=== PATIENT | male | born 1945 | race Caucasian/White ===

== ENCOUNTER 2017-12-11 15:49 | Emergency (ER) | payer OTHER, SELFPAY ==
[2017-12-11 15:50] VITALS: BP 154/92; PULSE 88; RESP 17; TEMP 36.6; O2SAT 96; BMI 33.6
--- NOTE | 2017-12-11 16:32 | RAD_ITS ---
STUDY: X-RAY - ACUTE ABDOMINAL SERIES REASON FOR EXAM: Male, 72 years old. Pain across lower abdomen with distention. Nausea, vomiting and constipation. No BM since past Tuesday. TECHNIQUE: Single view of the chest. Supine, and erect view(s) of the abdomen were obtained. COMPARISON: None. FINDINGS: Multiple median sternotomy wires are noted consistent for cardiac surgery. The lungs are clear and expanded. Normal size heart. Normal mediastinum and parminder. Normal visualized pulmonary arteries. There is atherosclerotic tortuosity of the aortic arch and descending thoracic aorta. There is a paralytic ileus of the small intestine with mild gaseous distention. The soft tissue structures of the abdomen and pelvis are unremarkable. There are diffuse degenerative changes of the visualized lumbar spine. Degenerative findings of the hips. RAD/Acute Abdomen Inc Chest IMPRESSION: Question mild small bowel ileus. CT can further evaluate Electronically Signed: Chris Verduzco MD at 17:02 EDT , Service support ,
[2017-12-11 16:33] LABS: Absolute Lymphocyte Count 2.27 X10^3/ul (0.83-4.51); Absolute Neutrophil Count 5.9 X10^3/uL (2.0-7.7); Basophil# 0.02 X10^3/uL; Basophil% 0.2 % (0-1); Eosinophil# 0.11 X10^3/uL; Eosinophils% 1.2 % (0-5); Hematocrit 49.2 % (40-54); Hemoglobin 16.8 g/dl (13.0-16.5); Lymphocyte # 2.27 X10^3/ul (4.0); Lymphocyte % 24.1 % (19-41); Mean Corp Hgb Conc 34.1 g/gl (32-36); Mean Corpuscular Hgb 30.1 pg (27.0-32.0); Mean Platelet Vol. 10.2 fl (6.2-12.0); Monocyte# 1.14 X10^3/uL; Monocyte% 12.1 % (0-10); Neutrophil # 5.87 X10^3/uL (2.7-7.7); Neutrophil % 62.2 % (47-70); Platelet Count 212 K/mm3 (150-450); RBC Distribution Width CV 12.7 % (11.6-14.6); RBC Distribution Width SD 40.5 fl (35.1-43.9); Red Blood Count 5.59 M/mm3 (4.6-6.2); White Blood Count 9.4 K/mm3 (4.4-11.0)
[2017-12-11 16:36] LABS: POSITIVE COUNT NO; POSITIVE DIFFERENTIAL NO; POSITIVE MORPHOLOGY NO
[2017-12-11 16:47] LABS: Anion Gap 10 (5-15); BUN 20 mg/dL (7-18); BUN/Creat Ratio 21.3 RATIO (10-20); Calcium,Total 8.3 mg/dL (8.5-10.1); Chloride 103 mmol/L (98-107); Creatinine, Serum 0.94 mg/dL (0.70-1.30); EST Glomerular Filtration Rate 84 mL/min (>60); Est Glom Filt Rate - Afr Amer 102 mL/min (>60); Estimated Creatinine Clearance 76.77 ml/min; Glucose 241 mg/dL (74-106); Sodium Level 138 mmol/L (136-145)
--- NOTE | 2017-12-11 17:13 | CT_ITS ---
STUDY: CT ABDOMEN AND PELVIS WITHOUT CONTRAST REASON FOR EXAM: Male, 72 years old. Distention constipation RADIATION DOSAGE (If Supplied By Facility): CTDIvol = ( 21.27 ) mGy, DLP = ( 1137.14 ) mGycm TECHNIQUE: Transaxial images were obtained from the dome of the diaphragm to the symphysis pubis with oral contrast, and without intravenous contrast. Sagittal and coronal images were reconstructed. COMPARISON: None. FINDINGS: The visualized lung bases are unremarkable. The visualized portions of the heart are within normal limits. Multiple median sternotomy wires are noted consistent for cardiac surgery. There is decreased attenuation of the liver consistent with steatosis. There are surgical clips in the gallbladder fossa consistent with a prior cholecystectomy. There are multiple benign calcified granulomata of the spleen. There is diffuse atrophy of the pancreas. There is an indeterminate left adrenal mass measuring 29 x 19 mm Normal right kidney. Normal left kidney. There is a calcified 9.1 mm right renal artery aneurysm. Normal visualized stomach. Wall thickening and inflammation of the ileum. Suggest an ileitis. There are air-fluid levels in the small bowel representing possible ileus. Normal colon. There is non-visualization of the appendix. There are calcifications of the abdominal aorta and vascular structures. This is consistent for atherosclerotic disease. There is no abdominal aortic aneurysm. Normal inferior vena cava. Subcentimeter mesenteric lymph nodes. Normal urinary bladder. There are prostatic calcifications. Large amount of stool in the rectal vault can suggest constipation. Normal abdominal wall. There are degenerative changes of the osseous structures. Loss of intervertebral disc height at L5-S1. Vacuum disc phenomenon at L5-S1. Severe bilateral neuroforaminal stenosis at L4-5 and L5-S1. This is causing compression of the exiting L4 and L5 nerve roots respectively. CT/Abdomen/Pel W ORAL Cont Only IMPRESSION: There is mild ileitis. This is causing an ileus. Fatty liver. There is an indeterminate left adrenal mass measuring 29 x 19 mm. MRI could further evaluate. Cholecystectomy. Calcified right renal artery aneurysm. Severe bilateral neuroforaminal stenosis at L4-5 and L5-S1. This is causing compression of the exiting L4 and L5 nerve roots respectively. Other findings as above. Electronically Signed: Chris Verduzco MD at 19:46 EDT , Service support ,
[2017-12-11 18:11] VITALS: BP 170/87; PULSE 87; RESP 17; O2SAT 98
--- NOTE | 2017-12-11 20:03 | ED.VISSUMM ---
- ER Visit Summary Date of Service: 12/11/17 Chief Complaint: Abdominal pain since Tuesday and nausea and vomiting since Tuesday History of Present Illness: The patient is a 72 M who presents with abdominal pain since Tuesday and the sense of fullness with decreased appetite and no bowel movement. He also complains of nausea and vomiting times once a day since Tuesday. and patient states he has had no solid intake minimal oral intake. He denies fever, chills night sweats. Denies any ocular, visual auditory symptoms. He denies any cardiac respiratory symptoms. He denies any urologic symptoms. He denies myalgias arthralgias back pain. He denies headache, weakness, paresthesia, anesthesia motor weakness. He denies polyuria, polydipsia polyphagia. He denies any bleeding problems. Past medical history of type 2 diabetes and hypertension. He is status post single-vessel bypass surgery, circumflex Physical Examination: Pleasant elderly male with elevated blood pressure 154/92. He is afebrile. HEENT is remarkable tacky mucosa otherwise negative. Heart is regular without murmur, gallop or rub. S1 and S2 are normal. Lungs are clear to auscultation with good movement of air bilaterally. Abdomen is slightly distended tympanitic with decreased bowel sounds. The remainder of his abdominal exam is unremarkable. Rectal exam is unremarkable with normal size prostate. There is no stool vault. Neuro exam is nonfocal. There is no dermatologic lesions noted. Test Results: Three-view x-ray of the abdomen reveals multiple air-fluid levels however there is no distention or edema to the small bowel wall. This may represent ileus or early small bowel obstruction. White count is normal. Likely panels marked for glucose of 241 and a BUN of 20. CT of the abdomen with p.o. contrast was obtained because of concern for partial small bowel obstruction. The CT interpreted by radiologist reveals ileitis with inflammation of the ileum and evidence of an ileus. There is no evidence of obstruction. There is also a right renal artery aneurysm 9 mm and degenerative disc disease with nerve root compression. Emergency Department Course and Treatment: To evaluate patient abdominal pain x-rays were obtained as well as blood work. Because the abdominal x-ray is not normal but not diagnostic and concern for partial small bowel obstruction CT of the abdomen and pelvis with p.o. contrast was ordered. Treatment Plan: Since patient has evidence of ileitis he was asked regarding family history of inflammatory bowel disorder. He states there is no history. He received a dose of ciprofloxacin metronidazole and department. He has no history of alcohol use. He also received Bentyl. He will be discharged with prescription for ciprofloxacin, metronidazole, Bentyl and [place]. Since pharmacies are closed since it is the holiday he received a home pack of Bentyl and [place]. Disposition: Discharged to home with outpatient follow-up with Dr. Joshua Alonzo Impression: 1. Abdominal pain with nausea vomiting secondary to ileitis 2. Ileus secondary #1 3. Incidental right renal artery aneurysm 4. Hyperglycemia and type II diabetic This note was generated with Ziptration software. It may contain incorrect words, spelling, and punctuation that were not noted in review of the chart prior to signing ED Disposition - Plan for ED Patient: Disposition: Home or Assisted Living Chief Complaint: Abd Pain Instructions: Ileus Prescriptions: Dicyclomine HCl [Bentyl] 20 mg PO ACHS #10 cap Ciprofloxacin [Cipro] 500 mg PO BID #14 tab Metronidazole 500 mg PO TID #30 tab Referrals: Dmitry Haas MD [Primary Care Provider] - Joshua Alonzo MD [STAFF PHYSICIAN] - 1-2 Weeks Additional Instructions: Return if the pain is severe, unable to drink or eat because of vomiting or temperature greater than 100. Take medication as prescribed until gone. Pain medicine may cause worsening constipation recommend Metamucil 2-3 times a day for the next 3-4 days.
[2017-12-11] MEDS: Ciprofloxacin 500 MG Tablet PO (20:09)
[2017-12-11] MEDS: Dicyclomine 10 MG Capsule 20 MG PO (20:09)
--- NOTE | 2017-12-11 20:12 | ED.DCSUM_ITS ---
- ER Visit Summary Date of Service: 12/11/17 Chief Complaint: Abdominal pain since Tuesday and nausea and vomiting since Tuesday History of Present Illness: The patient is a 72 M who presents with abdominal pain since Tuesday and the sense of fullness with decreased appetite and no bowel movement. He also complains of nausea and vomiting times once a day since Tuesday. and patient states he has had no solid intake minimal oral intake. He denies fever, chills night sweats. Denies any ocular, visual auditory symptoms. He denies any cardiac respiratory symptoms. He denies any urologic symptoms. He denies myalgias arthralgias back pain. He denies headache, weakness, paresthesia, anesthesia motor weakness. He denies polyuria , polydipsia polyphagia. He denies any bleeding problems. Past medical history of type 2 diabetes and hypertension. He is status post single-vessel bypass surgery, circumflex Physical Examination: Pleasant elderly male with elevated blood pressure 154/ 92. He is afebrile. HEENT is remarkable tacky mucosa otherwise negative. Heart is regular without murmur, gallop or rub. S1 and S2 are normal. Lungs are clear to auscultation with good movement of air bilaterally. Abdomen is slightly distended tympanitic with decreased bowel sounds. The remainder of his abdominal exam is unremarkable. Rectal exam is unremarkable with normal size prostate. There is no stool vault. Neuro exam is nonfocal. There is no dermatologic lesions noted. Test Results: Three-view x-ray of the abdomen reveals multiple air-fluid levels however there is no distention or edema to the small bowel wall. This may represent ileus or early small bowel obstruction. White count is normal. Likely panels marked for glucose of 241 and a BUN of 20. CT of the abdomen with p.o. contrast was obtained because of concern for partial small bowel obstruction. The CT interpreted by radiologist reveals ileitis with inflammation of the ileum and evidence of an ileus. There is no evidence of obstruction. There is also a right renal artery aneurysm 9 mm and degenerative disc disease with nerve root compression. Emergency Department Course and Treatment: To evaluate patient abdominal pain x- rays were obtained as well as blood work. Because the abdominal x-ray is not normal but not diagnostic and concern for partial small bowel obstruction CT of the abdomen and pelvis with p.o. contrast was ordered. Treatment Plan: Since patient has evidence of ileitis he was asked regarding family history of inflammatory bowel disorder. He states there is no history. He received a dose of ciprofloxacin metronidazole and department. He has no history of alcohol use. He also received Bentyl. He will be discharged with prescription for ciprofloxacin, metronidazole, Bentyl and [place]. Since pharmacies are closed since it is the holiday he received a home pack of Bentyl and [place]. Disposition: Discharged to home with outpatient follow-up with Dr. Joshua Alonzo Impression: 1. Abdominal pain with nausea vomiting secondary to ileitis 2. Ileus secondary #1 3. Incidental right renal artery aneurysm 4. Hyperglycemia and type II diabetic This note was generated with LoveItation software. It may contain incorrect words, spelling, and punctuation that were not noted in review of the chart prior to signing ED Disposition - Plan for ED Patient: Disposition: Home or Assisted Living Chief Complaint: Abd Pain Instructions: Ileus Prescriptions: Dicyclomine HCl [Bentyl] 20 mg PO ACHS #10 cap Ciprofloxacin [Cipro] 500 mg PO BID #14 tab Metronidazole 500 mg PO TID #30 tab Referrals: Dmitry Haas MD [Primary Care Provider] - Joshua Alonzo MD [STAFF PHYSICIAN] - 1-2 Weeks Additional Instructions: Return if the pain is severe, unable to drink or eat because of vomiting or temperature greater than 100. Take medication as prescribed until gone. Pain medicine may cause worsening constipation recommend Metamucil 2-3 times a day for the next 3-4 days.
[2017-12-11 20:13] VITALS: BP 147/82; PULSE 98; RESP 18; O2SAT 95
[2017-12-11] MEDS: Dicyclomine 10 MG Capsule PO (20:27)
[2017-12-11] MEDS: HYDROcodone Bitartrate/Apap 5/325 Tablet PO (20:28)
[2017-12-11 20:30] VITALS: BP 147/82; PULSE 98; RESP 18; O2SAT 95
== END 2017-12-11 20:31 | disposition home or self-care (01) ==
PROVIDERS: Emergency Provider Emergency Medicine; Family Provider Family Medicine; PCP Family Medicine
DX: R10.9 Unspecified abdominal pain (principal); R11.2 Nausea with vomiting, unspecified; K52.9 Noninfective gastroenteritis and colitis, unspecified; K56.7 Ileus, unspecified; I72.2 Aneurysm of renal artery; E11.65 Type 2 diabetes mellitus with hyperglycemia; M51.36 Other intervertebral disc degeneration, lumbar region; M51.37 Other intervertebral disc degeneration, lumbosacral region; E66.9 Obesity, unspecified; I10 Essential (primary) hypertension; Z95.1 Presence of aortocoronary bypass graft; Z87.891 Personal history of nicotine dependence; Z79.82 Long term (current) use of aspirin; Z79.84 Long term (current) use of oral hypoglycemic drugs; Z79.899 Other long term (current) drug therapy
CPT/HCPCS: 74022; 74176; 80048; 85025; 99284; A4216

== ENCOUNTER → 2017-12-16 15:50 | Outpatient (CLI) | payer OTHER, SELFPAY ==
--- NOTE | 2017-12-16 09:28 | COLBX_PTH ---
PATIENT: HERACLIO SALMERON LOC: [facility] U#:[id number] AGE/SX: 79/M ROOM: RE12/16/[address]: Dr. Joshua Alonzo MD : 1945 BED: DIS: SPEC #: [id number] RECD: 12/16/17 15:41 STATUS: GLENNA EMILIANO #: [id number] VEDA: 12/16/17 09:[address]: Joshua Alonzo DEPT: SURGICAL PATHOLOGY RECD BY: Satish Castillo ENTERED: 12/19/17 08:01 SP TYPE: COLON BX OTHR DR: FREDI Tissues: A - Right colon B - Sigmoid colon biopsy Procedures: Surgery Specimen Level IV HEADER OPERATION: Colonoscopy with polypectomy PRE-OP DIAGNOSIS: Abdominal pain TISSUE SUBMITTED: A. Right colon polyps, rule out adenoma, B. Sigmoid polyp, rule out adenoma MICROSCOPIC DIAGNOSIS A. Right colon polyp, biopsy: Fragments of tubular adenoma. B. Sigmoid colon polyp, biopsy: Hyperplastic polyp. AM:fransico 12/20/17 MICROSCOPIC DESCRIPTION Slides are reviewed. GROSS DESCRIPTION A - Received in fixative is one container labeled with the patient's name and designated right colon polyps. The specimen consists of multiple irregular fragments of light hou soft tissue that in aggregate measure 1 x 0.3 x 0.2 cm. The specimen is totally submitted in one cassette. B - Received in fixative is one container labeled with the patient's name and designated sigmoid polyp. The specimen consists of a piece of hou-pink polyp measuring 0.3 x 0.3 x 0.2 cm. The specimen is totally submitted in one cassette. / SEYMOUR:fransico 12/19/17 TC:5 CPT: 16902 x2
== END ==
PROVIDERS: Visit Provider Internal Medicine Gastroenterology
DX: D12.2 Benign neoplasm of ascending colon (principal); K63.5 Polyp of colon
CPT/HCPCS: 88305

== ENCOUNTER → 2018-07-10 07:17 | Outpatient (CLI) | payer OTHER, SELFPAY ==
--- NOTE | 2018-07-10 07:37 | CT_ITS ---
STUDY: CT ABDOMEN AND PELVIS WITH CONTRAST. REASON FOR EXAM: Male, 72 years old. Renal artery aneurysm for follow-up. RADIATION DOSAGE (If Supplied By Facility): CTDIvol = ( 32.84 ) mGy, DLP = ( 1271.41 ) mGycm. Individualized dose optimization techniques were used for this CT.? Rest TECHNIQUE: Axial images through the abdomen and pelvis after administration of 100 mL Isovue 370 intravenous contrast with sagittal and coronal reconstructions as well as 3-D color reconstructions. COMPARISON: CT abdomen and pelvis December 11, 2017. FINDINGS: Heart is not enlarged. Lung bases are clear. In correlation with the prior noncontrast enhanced study hepatic steatosis. Surgical clips in the gallbladder fossa compatible cholecystectomy. Normal pancreas. Scattered calcifications in spleen. Normal right adrenal gland. 3.0 x 1.7 cm left adrenal nodule which on the prior study had attenuation of 12 Hounsfield units suggestive of an adrenal adenoma and unchanged in size. There are normal kidneys and proximal ureters. Retroaortic left renal vein. Atherosclerotic calcification of the abdominal aorta without aneurysmal dilatation. Patent takeoffs of the celiac axis, superior mesenteric artery, single bilateral renal arteries and inferior mesenteric artery. Peripherally calcified 1.0 x 0.7 cm distal right renal artery aneurysm unchanged, coronal image 78 series 601, sagittal image 67 and axial image 73 series 2.. There is narrowing of the proximal 1 cm of the left renal artery, with classic axial image 61 series 2 and coronal image 73 series 601. Normal stomach. Normal small intestine. Colon grossly normal. Appendix is well-seen coronal image 68 series 601 and appears normal. No intra-abdominal free air. Multilevel degenerative changes of the lumbar spine. CT/CT ANGIO ABD&PEL W/O&W/DYE IMPRESSION: Stable 1 cm peripherally calcified distal right renal artery aneurysm. Narrowing of the proximal left renal artery. Fatty liver. Old granulomatous disease. Stable left adrenal adenoma. Normal appendix. Electronically Signed: Garcia Payton MD at 6:04 EDT , Service support ,
[2018-07-10 07:55] LABS: AST(SGOT) 21 U/L (15-37); Alanine Aminotransfer ALT/SGPT 37 U/L (16-61); Albumin, Serum 3.4 g/dL (3.2-5.0); Alkaline Phosphatase 66 U/L (45-117); Bilirubin, Direct 0.16 mg/dL (0.00-0.30); Cholesterol 192 mg/dL (200); Creatinine, Serum 1.15 mg/dL (0.70-1.30); EST Glomerular Filtration Rate 67 mL/min (>60); Est Glom Filt Rate - Afr Amer 80 mL/min (>60); Globulin 3.6 g/dL (2.2-4.2); High Density Lipoprotein 42 mg/dL; Triglycerides 196 mg/dL; Very Low Density Lipoprotein 39 mg/dL (5-40)
== END ==
PROVIDERS: Family Provider Family Medicine; PCP Family Medicine; Referring Provider Surgery Vascular Surgery; Visit Provider Surgery Vascular Surgery
DX: I72.2 Aneurysm of renal artery (principal); Z13.89 Encounter for screening for other disorder
CPT/HCPCS: 36415; 74174; 80061; 80076; 82565; Q9967

== ENCOUNTER → 2019-01-16 | Outpatient (CLI) | payer OTHER, SELFPAY ==
[2019-01-08 09:09] VITALS: BMI 32.2
--- NOTE | 2019-01-16 10:15 | STEWCON_ITS ---
Version 2 Reason For Study: S/P CABG, ASHD, CAD Stress Results Protocol: Stress Echocardiogram Maximum Predicted HR: 148 bpm Target HR: 126 bpm % Maximum Predicted HR: 89 % DurationHeart Rate Stage (mm:ss) (bpm) BP Comment BASELINE 68 128/70DILUTED DEFINITY 4CC USED GEORGE PROTOCOL- STAGE 1 3:00 100 130/72 GEORGE PROTOCOL- STAGE 2 3:00 131 140/74SL SOB, LEG FATIGUE RECOVERY 83 136/70DENIES CP OR SOB @ PRESENT Stress Duration: 6:00 mm:ss Maximum Stress HR: 131 bpm Baseline Echocardiogram Findings Stress Echo Wall motion Data Resting WM Intermediate WM Stress WM Resting Wall Motion Wall Motion Stress No regional wall motion No regional wall motion abnormalities noted. abnormalities noted. Ejection Fraction 55 %. Ejection Fraction 65 %. Interpretation Summary Exercise stress echocardiogram. Resting EKG demonstrates normal sinus rhythm with a rate of 68 bpm normal intervals are noted resting blood pressure is 128/70 mmHg. The patient exercised according to the regular George protocol for a total duration of 6 minutes. Patient completed stage II of the George protocol the maximum heart rate attained was 131 bpm which was 88% of maximum predicted heart rate the maximum workload was 7 metabolic equivalents. At rest there were no ST or T wave changes noted suggest ischemia. At peak exercise nonspecific ST changes were noted with number the criteria for ischemia. During recovery T wave inversions were noted in lead II, III, aVF, V5 and V6. No clinical angina was noted the test was terminated due to leg fatigue. Stress echocardiogram. Resting and stress echocardiographic images were obtained with Definity enhancement. The resting ejection fraction was 55% with a peak ejection fraction of 65% and no obvious wall motion abnormalities present. Conclusion: Normal stress echocardiographic evaluation after workload of 7 metabolic equivalents. No clinical angina noted. Ordering Physician: Miladys^Carlos^H^^GAUGE AND INSTRUMENT INSPECTOR Referring Physician: Carlos Hook Performed By: Grisel Pereira, RDCS, RVT
== END | disposition home or self-care (01) ==
LOC: CVS 10:14
PROVIDERS: Family Provider Physician Assistant; PCP Physician Assistant; Referring Provider Nurse Practitioner Family; Visit Provider Nurse Practitioner Family
DX: I25.110 Atherosclerotic heart disease of native coronary artery with unstable angina pectoris (principal); Z95.1 Presence of aortocoronary bypass graft; I48.0 Paroxysmal atrial fibrillation; E78.00 Pure hypercholesterolemia, unspecified; E11.9 Type 2 diabetes mellitus without complications
CPT/HCPCS: 93017; 93350; Q9957; A4216; C8928

== ENCOUNTER → 2019-08-15 07:42 | Outpatient (CLI) | payer OTHER, SELFPAY ==
[2019-07-20 14:38] VITALS: BMI 31.6
--- NOTE | 2019-08-15 07:48 | CT_ITS ---
STUDY: CTA OF THE ABDOMINAL AORTA REASON FOR EXAM: Male, 73 years old. Visceral aneurysm follow up, no pain or new problems. Prior cholecystectomy, diabetes. RADIATION DOSAGE (If Supplied By Facility): CTDIvol = ( 32.75 ) mGy, DLP = ( 1289.70 ) mGycm TECHNIQUE: Axial CT angiography multi-detector data acquisition was obtained from the to the following intravenous administration of 100mL Isovue 370. Axial images and MIP images were reconstructed from the axial data set. Post-processing of the angiographic images was performed, with multiplanar reformation and 3D reconstruction. Individualized dose optimization techniques were used for this CT. TECHNICAL QUALITY: Good COMPARISON: CT angiogram abdomen and pelvis July 10, 2018 Descriptors of Narrowing: None (0%) Mild (< 50%) Moderate (50-70%) Severe (70-90%) Subtotal/Total Occlusion (90-100%) Non-Evaluable (technically non-diagnostic FINDINGS: Abdominal aorta: No demonstrated narrowing. Mild atherosclerosis. Celiac and superior mesenteric arteries: No demonstrated narrowing. Inferior mesenteric artery: No demonstrated narrowing. Right renal artery(arteries): No demonstrated narrowing. There remains a aneurysm seen in association with the distal right renal artery. This aneurysm appears at the level of the hilum and is peripherally calcified measuring approximately 0.8 cm in diameter, refer to image #76 series 601. This is without change when compared to previous study Left renal artery(arteries): No demonstrated narrowing. At the left renal artery origin there appears dominant and a nondominant renal artery. I do note that there does appear stenosis of the larger renal artery from the aorta by approximately 75%. This is similar in retrospect. There is also another left renal artery that is seen originating from the aorta near the level of the NILES. This is patent. Right common iliac artery: No demonstrated narrowing. Mild atherosclerosis. Right external iliac artery: No demonstrated narrowing. Mild atherosclerosis. Right internal iliac artery: No demonstrated narrowing. Mild atherosclerosis. Left common iliac artery: No demonstrated narrowing. Mild atherosclerosis. Left external iliac artery: No demonstrated narrowing. Mild atherosclerosis. Left internal iliac artery: No demonstrated narrowing. Mild atherosclerosis. Base of the heart is unremarkable. Punctate granuloma is noted in the left lower lobe laterally. Minimal hypoventilatory change noted of the lungs. Punctate granuloma of the liver and spleen noted. Cholecystectomy clips noted. No evidence of intrahepatic or extrahepatic biliary ductal dilatation. Fatty infiltration of the pancreas noted. Once again note is made of a benign-appearing left adrenal adenoma measuring approximately 1.7 cm in diameter. The right adrenal gland has an unremarkable appearance. Both kidneys enhance bilaterally and symmetrically. Parapelvic cysts are noted on the left. No retroperitoneal lymphadenopathy. Small fatty umbilical hernia noted. The stomach is contracted otherwise unremarkable. Small bowel has an unremarkable appearance as well as large bowel. No inflammatory change. CT appearance of the appendix is unremarkable. The urinary bladder as an unremarkable appearance. Prostate calcifications present. Degenerative spondylosis of the spine noted. CT/CT ANGIO ABD&PEL W/O&W/DYE IMPRESSION: Stable right renal artery aneurysm. Unchanged appearance of stenosis associated with the major left renal artery. See above for additional findings. Electronically Signed: Viry Estrada MD at 9:11 EST , Service support ,
[2019-08-15 08:00] LABS: CREATININE FINGERSTICK 1.2 mg/dL (0.70-1.30); EGFR FINGERSTICK > 60.0000 mL/min (>60)
== END ==
PROVIDERS: Family Provider Physician Assistant; PCP Physician Assistant; Referring Provider Surgery Vascular Surgery; Visit Provider Surgery Vascular Surgery
DX: I72.8 Aneurysm of other specified arteries (principal)
CPT/HCPCS: 74174; Q9967

== ENCOUNTER 2019-10-09 11:41 | Emergency (ER) | payer MEDICARE, SELFPAY ==
[2019-07-20 14:38] VITALS: BMI 31.6
[2019-10-09 11:42] VITALS: BP 111/59; PULSE 80; RESP 18; TEMP 36.6; O2SAT 98; BMI 30.5
--- NOTE | 2019-10-09 12:01 | CT_ITS ---
STUDY: CT ABDOMEN AND PELVIS WITHOUT CONTRAST REASON FOR EXAM: Male, 74 years old. CONSTIPATION X 6 DAYS -- SURG-GB RADIATION DOSAGE (If Supplied By Facility): CTDIvol = ( 13.16 ) mGy, DLP = ( 693.79 ) mGycm TECHNIQUE: Transaxial images were obtained from the dome of the diaphragm to the symphysis pubis without oral contrast, and without intravenous contrast. Sagittal and coronal images were reconstructed. Individualized dose optimization techniques were used for this CT. COMPARISON: Comparison is made with prior study dated December 11, 2017. FINDINGS: The visualized lung bases are unremarkable. Coronary artery calcification. There is decreased attenuation of the liver consistent with steatosis. There are surgical clips in the gallbladder fossa consistent with a prior cholecystectomy. There are multiple benign calcified granulomata of the spleen. There are pancreatic calcifications in the distribution of the ducts consistent with chronic pancreatitis. There is a small, circumscribed, smooth, low attenuation left adrenal mass, consistent with an adrenal adenoma. This measures 1.8 cm by 3.4 cm. Normal right adrenal gland. Normal right kidney. Stable 9 mm calcified right renal artery aneurysm. Normal left kidney. There is a small hiatal hernia. Normal small intestine. There are scattered colonic diverticula consistent with diverticulosis. Moderate amount of fecal material is seen in the colon. The appendix is visualized and appears normal. There is diffuse atherosclerotic calcification of the abdominal aorta, without a demonstrated aneurysm. Normal inferior vena cava. Normal retroperitoneum. Normal urinary bladder. There are prostatic calcifications. There is a small umbilical hernia containing fat. There are diffuse degenerative changes of the visualized lumbar spine. CT/Abdomen/Pelvis without Cont IMPRESSION: Stable 1.8 cm x 3.4 cm hypodense nodule in the left adrenal gland suggestive of an adenoma. Stable 9 mm calcified right renal artery aneurysm. Scattered sigmoid diverticulosis. Electronically Signed: Javier Villalobos, at 12:51 EST , Service support ,
--- NOTE | 2019-10-09 12:03 | ED.DCSUM_ITS ---
History of Present Illness Chief Complaint: Constipation Narrative: Patient presents with abdominal pain, no bowel movement for 5 days nausea and vomiting. He does believe his abdomen is somewhat more distended. He has a history of bowel obstruction a few years ago. Because of history of gallbladder surgery as well as bypass surgery. No fever or chills. He denies any urinary symptoms. There is no chest pain or shortness of breath. No recent cough congestion or myalgias Past Medical History - Allergies and Home Meds Allergies/Adverse Reactions: Allergies ATB - CAN NOT REMEMBER NAME Allergy (Uncoded 10/09/19 11:45) Rash Primary Care Physician: Alan Mata PA [Primary Care Provider] - Past Medical History: - - History of bowel obstruction as in HPI, hypertension, hypercholesterolemia, coronary artery disease, otherwise medical history is reviewed in the summary section of [employer] Smoking Status: Former smoker Review of Systems All systems negative except as indicated General: Denies: Chills, Fever Eyes: Denies: Visual changes - bilaterally Cardiovascular: Denies: Chest pain, Palpitations Respiratory: Denies: Dyspnea, Cough Gastrointestinal: Reports: Abdominal pain, Nausea Genitourinary: Denies: Dysuria Musculoskeletal: Denies: Myalgias Neurological: Denies: Headache, Weakness Psych: Denies: Depression Endocrine: Denies: Polyuria, Polydipsia Hematologic: Denies: Easy bruising Allergy: Denies: Uticaria Physical Exam Vital Signs/Narrative: Vital Signs Temp Pulse Resp BP Pulse Ox 10/09/19 11:42 97.9 F 80 18 111/59 L 98 General: Well nourished, Well developed Head: Normocephalic Eyes: Perrl, EOMI ENT: Moist mucous membranes Cardiovascular: Regular rate, Regular rhythm Respiratory: No distress, CTA bilaterally Abdomen: Soft, - - Slightly distended abdomen, there is minimal tenderness throughout the entire abdomen there is a large midline hernia. There is no guarding or rebound. Somewhat hypoactive bowel sounds Rectal: - - Normal rectal exam no stool impaction. Back: Nontender, Normal Inspection Extremities: Nontender, No edema Skin: Normal color, No rash Neurological: Alert, Oriented x3 Psychological: Normal affect Diagnostic/Tx/Re-eval - Medical Decision Making Has an unremarkable CT other than moderate amount of stool in the colon which was interpreted by me. Otherwise normal blood work. I will discharge the patient with MiraLAX. If anything worsens they need to return. ED Disposition - Plan for ED Patient: Disposition: [facility] Hospital or Unit Diagnosis: Constipation Instructions: CONSTIPATION (Adult) Prescriptions: Polyethylene Glycol 3350 [Miralax] 17 gm PO DAILY #5 packet Prescription Printed Referrals: Alan Mata PA [Primary Care Provider] - 3-5 Days
[2019-10-09] MEDS: Ondansetron 4 MG/2 ML Vial IV (12:17)
[2019-10-09 12:30] LABS: Absolute Lymphocyte Count 1.89 X10^3/uL (0.83-4.51); Absolute Neutrophil Count 6.6 X10^3/uL (2.0-7.7); Basophil# 0.07 X10^3/uL; Basophil% 0.7 % (0-1); Eosinophil# 0.04 X10^3/uL; Eosinophils% 0.4 % (0-5); Hemoglobin 17.5 g/dL (13.0-16.5); Lymphocyte # 1.89 X10^3/ul (4.0); Lymphocyte % 19.9 % (19-41); Mean Corp Hgb Conc 33.7 g/dL (32-36); Mean Corpuscular Hgb 29.1 pg (27.0-32.0); Mean Corpuscular Volume 86.4 fL (80-94); Mean Platelet Vol. 9.8 fl (6.2-12.0); Monocyte% 9.5 % (0-10); NRBC Flagged by Analyzer 0 % (0-5); Neutrophil # 6.59 X10^3/uL (2.7-7.7); Neutrophil % 69.2 % (47-70); Platelet Count 196 K/mm3 (150-450); RBC Distribution Width CV 12.8 % (11.6-14.6); RBC Distribution Width SD 39.9 fl (35.1-43.9); Red Blood Count 6.02 M/mm3 (4.6-6.2); White Blood Count 9.5 K/mm3 (4.4-11.0)
[2019-10-09 12:46] LABS: ALB/GLOB Ratio 0.9 RATIO (0.9-2.4); AST(SGOT) 27 U/L (15-37); Alanine Aminotransfer ALT/SGPT 43 U/L (16-61); Albumin, Serum 3.2 g/dL (3.2-5.0); Alkaline Phosphatase 72 U/L (45-117); Anion Gap 8 (5-15); BUN 24 mg/dL (7-18); BUN/Creat Ratio 18.9 RATIO (10-20); Calcium,Total 9.6 mg/dL (8.5-10.1); Chloride 103 mmol/L (98-107); Creatinine, Serum 1.27 mg/dL (0.70-1.30); EST Glomerular Filtration Rate 59 mL/min (>60); Est Glom Filt Rate - Afr Amer 72 mL/min (>60); Estimated Creatinine Clearance 55.17 ml/min; Globulin 3.7 g/dL (2.2-4.2); Glucose 334 mg/dL (74-106); Lipase 101 U/L (73-393); Potassium 4.1 mmol/L (3.5-5.1); Protein, Total 6.9 g/dL (6.4-8.2); Sodium Level 138 mmol/L (136-145)
== END 2019-10-09 13:42 ==
PROVIDERS: Emergency Provider Emergency Medicine; PCP Physician Assistant
DX: K59.00 Constipation, unspecified (principal); I10 Essential (primary) hypertension; E78.00 Pure hypercholesterolemia, unspecified; I25.10 Atherosclerotic heart disease of native coronary artery without angina pectoris; Z87.19 Personal history of other diseases of the digestive system; Z79.82 Long term (current) use of aspirin; Z79.899 Other long term (current) drug therapy; Z87.891 Personal history of nicotine dependence
CPT/HCPCS: 74176; 80053; 83690; 85025; 96374; 99283; A4216; J2405

== ENCOUNTER 2019-10-13 00:17 | Inpatient (IN) | payer MEDICARE, SELFPAY ==
[2019-10-13] VITALS (56 sets, daily range): BP systolic 56–143; BP diastolic 37–106; PULSE 57–646; RESP 14–27; TEMP 35.9–36.7; O2SAT 65–97; BMI 30.7; BMI 30.6
--- NOTE | 2019-10-13 00:50 | EKG12_ITS ---
Test Reason : DYSRHYTHMIA Blood Pressure : / mmHG Vent. Rate : 164 BPM Atrial Rate : 178 BPM P-R Int : 000 ms QRS Dur : 100 ms QT Int : 304 ms P-R-T Axes : 000 -02 200 degrees QTc Int : 502 ms Atrial fibrillation Poor R- Wave progression Septal infarct , age undetermined , cannnot b excluded Inferior infarct ,age undetermined, cannot be excluded Nonspecfic ST/T wave abnormality Abnormal ECG Confirmed by JANICE MAZARIEGOS, ROBERT ([id number]), assignment desk editor STAN ORTA ([id number]) on 10/15/2019 3:42:18 PM Referred By: Alan Mata Confirmed By:ROBERT CAMACHO MD
[2019-10-13] MEDS: dilTIAZem 25 MG/5 ML Vial 20 MG IV BOLUS (01:13)
[2019-10-13] MEDS: 0.9% Normal Saline 1,000 ML 500 ML IV (01:14)
[2019-10-13 01:15] LABS: Absolute Lymphocyte Count 1.65 X10^3/uL (0.83-4.51); Absolute Neutrophil Count 10.4 X10^3/uL (2.0-7.7); Basophil# 0.04 X10^3/uL; Basophil% 0.3 % (0-1); Eosinophil# 0.01 X10^3/uL; Eosinophils% 0.1 % (0-5); Hematocrit 53.3 % (40-54); Lymphocyte # 1.65 X10^3/ul (4.0); Lymphocyte % 12.7 % (19-41); Mean Corp Hgb Conc 34.5 g/dL (32-36); Mean Corpuscular Volume 86.9 fL (80-94); Mean Platelet Vol. 10.1 fl (6.2-12.0); Monocyte# 0.88 X10^3/uL; Monocyte% 6.8 % (0-10); NRBC Flagged by Analyzer 0 % (0-5); Neutrophil # 10.36 X10^3/uL (2.7-7.7); Neutrophil % 79.7 % (47-70); Platelet Count 264 K/mm3 (150-450); RBC Distribution Width CV 12.7 % (11.6-14.6); RBC Distribution Width SD 39.5 fl (35.1-43.9); Red Blood Count 6.13 M/mm3 (4.6-6.2)
[2019-10-13] MEDS: Morphine 4 MG/ML Syringe IV ×2 (01:15→02:50)
[2019-10-13] MEDS: Ondansetron 4 MG/2 ML Vial IV ×2 (01:15→04:11)
[2019-10-13 01:29] LABS: Hemoglobin 18.4 g/dL (13.0-16.5)
[2019-10-13] MEDS: dilTIAZem 25 MG/5 ML Vial IV BOLUS (01:38)
[2019-10-13 01:49] LABS: ALB/GLOB Ratio 0.8 RATIO (0.9-2.4); AST(SGOT) 23 U/L (15-37); Alanine Aminotransfer ALT/SGPT 38 U/L (16-61); Albumin, Serum 3.1 g/dL (3.2-5.0); Alkaline Phosphatase 77 U/L (45-117); Anion Gap 11 (5-15); BUN 27 mg/dL (7-18); BUN/Creat Ratio 24.8 RATIO (10-20); Chloride 99 mmol/L (98-107); Creatinine, Serum 1.09 mg/dL (0.70-1.30); EST Glomerular Filtration Rate 71 mL/min (>60); Est Glom Filt Rate - Afr Amer 85 mL/min (>60); Estimated Creatinine Clearance 64.29 ml/min; Globulin 3.7 g/dL (2.2-4.2); Glucose 381 mg/dL (74-106); Lipase 100 U/L (73-393); Potassium 3.2 mmol/L (3.5-5.1); Protein, Total 6.8 g/dL (6.4-8.2); Sodium Level 139 mmol/L (136-145); Thyroid Stim Hormone (TSH) 1.16 uIU/mL (0.358-3.74)
--- NOTE | 2019-10-13 01:54 | ED.DCSUM_ITS ---
- ER Visit Summary Date of Service: 10/13/19 Chief Complaint: Abdominal pain History of Present Illness: The patient is a 74 M who sees Primitivo Mata and Dr. Gutierrez. He reports that his last bowel movement was 8 days ago. Typically he goes every other day. He reports that he has abdominal pain that began today. It is a sharp, diffuse pain that is 10 out of 10 at worst an 8 out of 10 currently. Is worsened by movement and relieved by remaining still. He is been nauseated and vomited twice. No blood in his emesis. No dysuria or frequency. Patient denies any other complaints. No fever, chills, chest pain, shortness of breath, or palpitations. Physical Examination: Vitals: Stable. Afebrile. General: Well-nourished and well-developed. Head: Normocephalic atraumatic. Neck: Supple, no lymphadenopathy. No JVD. Nontender. Cardiovascular: Tachycardic irregular rhythm. No murmurs. Respiratory: No respiratory distress. Clear to auscultation bilaterally. Abdominal: Soft, moderate diffuse tenderness palpation. Abdomen is distended with hypoactive bowel sounds. No guarding, rebound, or peritoneal signs. Back: Nontender. Extremities: Nontender, no edema. Skin: Normal color, no rash. Neurologic: Alert and oriented ?3. Cranial nerves II through XII are intact. Normal strength and sensation. Psych: Normal affect. Test Results: EKG is A. fib at [address] changes. Initial troponin is negative. LFTs are marked for an albumin of 3.1. Lipase is normal. Chem-7 shows a potassium of 3.2, glucose of 381, BUN of 27. CBC shows a white count of 13.0 with hemoglobin of 18.4, 7 neutrophils 80, lymphocytes of 13. TSH is 1.16. Three-view of the abdomen shows a nonspecific bowel gas pattern. Emergency Department Course and Treatment: Patient was given a liter of normal saline. He was given morphine and Zofran IV. He is resting more comfortably. Patient does have a history of paroxysmal atrial fibrillation, but he is not anticoagulated. He was given 20 mg of Cardizem IV with essentially no change in his rate. He is given 25 mg of Cardizem IV and his rate ranged from 115?140. He was then given Lopressor IV. His rate is now in the low 100s. However, he is having episodes where he goes into a sinus rhythm in the 40s to 60s. Because of this further Lopressor was held. Treatment Plan: The patient was discussed with Dr. Castaneda. He will be admitted to the hospital for further evaluation and treatment. Disposition: Admitted in improved condition. Impression: 1. Atrial fibrillation with RVR. 2. Constipation. This note was generated with [employer] dictation software. It may contain incorrect words, spelling, and punctuation that were not noted in review of the chart prior to signing ED Disposition - Plan for ED Patient: Referrals: Alan Mata PA [Primary Care Provider] -
--- NOTE | 2019-10-13 02:00 | RAD_ITS ---
STUDY: X-RAY - ACUTE ABDOMINAL SERIES REASON FOR EXAM: Male, 74 years old. CHEST PAIN, ABDOMEN PAIN, VOMITING, CONSTIPATION FOR 2 DAYS, HX OF GALLBLADDER SURGERY, HX OF OPEN HEART SURGERY 10 YEARS AGO TECHNIQUE: Single view of the chest. Supine, and erect view(s) of the abdomen were obtained. COMPARISON: None. FINDINGS: The lungs are slightly underexpanded with bilateral basilar atelectasis. Remainder of the lungs are clear. There is cardiomegaly with left atrial enlargement. Normal mediastinum and parminder. Normal visualized pulmonary arteries. There is atherosclerotic calcification of the aortic arch with tortuosity. Midline sternotomy wires noted. There is a non-specific bowel gas pattern. The soft tissue structures of the abdomen and pelvis are unremarkable. There are diffuse degenerative changes of the visualized lumbar spine. 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 RAD/Acute Abdomen Inc Chest IMPRESSION: Bilateral basilar atelectasis, otherwise no acute cardiopulmonary process. No signs of bowel obstruction or free air. Electronically Signed: Laura San MD at 2:31 EST , Service support ,
[2019-10-13] MEDS: Metoprolol Tartrate 5 MG/5 ML Vial IV (02:23)
--- NOTE | 2019-10-13 03:10 | PCM.HP.STD ---
Problem List (1) Abdominal pain Status: Acute (2) Dehydration Status: Acute (3) Atrial fibrillation with RVR Status: Acute (4) Pure hypercholesterolemia Status: Chronic (5) History of radiofrequency ablation (RFA) procedure for cardiac arrhythmia Status: Chronic Comment: S/P pulmonary vein isolation/ablation 11/2009 and MAZE procedure (6) Diabetes mellitus type II, controlled Status: Chronic (7) Paroxysmal atrial fibrillation Status: Chronic Comment: S/P pulmonary vein isolation/ablation and Maze procedure in November 2009; (8) Postsurgical aortocoronary bypass status Status: Chronic Comment: left thoracic artery to LAD,Maze procedure (9) Atherosclerotic heart disease of [place] coronary artery with unstable angina pectoris Status: Chronic Qualifiers: History of Present Illness Date of Admission: 10/13/19 Chief Complaint: Abdominal pain, constipation. The patient is a 74 year old M patient with past medical history as mentioned above presented to the emergency because of abdominal pain. Her symptoms started today earlier with abdominal pain, generalized, diffuse, sharp, 10 out of 10 in severity, not radiating, associated with nausea and vomiting and without aggravating or relieving factors. He mentioned that he had no bowel movement for the last 8 days. Normally, he goes every other day for bowel movements. He denies fever or chills. He mentioned that he still having passing flatus but not as usual. He denied chest pain or shortness of breath. He denied dizziness or lightheadedness. In the emergency department, patient was afebrile, was in A. fib with RVR and heart rate was up to 160s. Blood pressure was stable, pulse ox was 94% on 2 L. His routine blood work was remarkable for mild leukocytosis, hemoglobin of 18.4, potassium 3.2, BUN is 27 and blood glucose is 381. LFT and lipase were unremarkable. TSH was normal. EKG revealed A. fib with RVR, heart rate was 166, no acute skin changes. Troponin was negative. X-ray abdomen revealed no signs of bowel obstruction or free air. Patient received IV Cardizem bolus x2 in the ED and his heart rate slowed down to around 110 but still goes up to 120s. Patient had CT scan abdomen and pelvis 4 days ago for the same complaint and he was found to have moderate amount of fecal material seen throughout the colon. He is being admitted for A. fib with RVR, dehydration, abdominal pain secondary to constipation as well as hypokalemia. Past Medical History Past Medical History (Chronic Problems): Chronic Problems (Last Reviewed 07/20/19 @ 14:40 by Reyna Hernandez) Pure hypercholesterolemia (Chronic) History of radiofrequency ablation (RFA) procedure for cardiac arrhythmia (Chronic ~11/2009) S/P pulmonary vein isolation/ablation 11/2009 and MAZE procedure Diabetes mellitus type II, controlled (Chronic) Paroxysmal atrial fibrillation (Chronic) S/P pulmonary vein isolation/ablation and Maze procedure in November 2009; Postsurgical aortocoronary bypass status (Chronic ~11/29/09) left thoracic artery to LAD,Maze procedure Atherosclerotic heart disease of [place] coronary artery with unstable angina pectoris (Chronic) Medical History: Medical History (Last Reviewed 07/20/19 @ 14:40 by Reyna Hernandez) Diabetes mellitus type II, controlled (Chronic) E11.9 Paroxysmal atrial fibrillation (Chronic) I48.0 S/P pulmonary vein isolation/ablation and Maze procedure in November 2009; Atherosclerotic heart disease of [place] coronary artery with unstable angina pectoris (Chronic) I25.110 Hx of pancreatitis Z87.19 Allergies ATB - CAN NOT REMEMBER NAME Allergy (Uncoded 10/13/19 00:26) Rash Home Medications: Ambulatory Orders Medication Instructions Recorded aspirin 81 mg tablet,delayed 81 mg PO DAILY 05/25/18 release nitroglycerin 0.4 mg sublingual 0.4 mg SUBLINGUAL Q5-15M PRN #25 05/26/18 tablet tab acetaminophen 325 mg capsule 325 mg PO Q6H 07/20/19 metformin 500 mg tablet 1,000 mg PO BID 90 Days #360 tab 07/20/19 sitagliptin 100 mg tablet 100 mg PO DAILY 90 Days #90 tab 07/20/19 Polyethylene Glycol 3350 [Miralax] 17 gm PO DAILY #5 packet 10/09/19 Glimepiride 2 mg PO DAILY 10/13/19 Surgical History: Surgical History (Last Updated 10/13/19 @ 02:51 by Harleen Castaneda MD) History of radiofrequency ablation (RFA) procedure for cardiac arrhythmia (Chronic) Onset Date: ~11/2009 Z98.890 S/P pulmonary vein isolation/ablation 11/2009 and MAZE procedure Postsurgical aortocoronary bypass status (Chronic) Onset Date: ~11/29/09 Z95.1 left thoracic artery to LAD,Maze procedure History of left heart catheterization Z98.890 History of cholecystectomy Z90.49 History of cholecystectomy Z90.49 History of removal of cyst Z98.890 back of neck Surgical History: cholecystectomy, coronary bypass surgery Psychiatric History: No pertinent psych hx Lives: Spouse/ Significant Other Smoking Status: Former smoker Alcohol: None Drugs: None - *Family History Maternal Family History: Family History (Last Reviewed 10/13/19 @ 03:15 by Harleen Castaneda MD) Father Cancer Mother Diabetes Brother Diabetes Brother Diabetes Son CAD (coronary artery disease) Review of Systems Constitutional: Reports: Anorexia, Weakness. Denies: Chills, Fever Eyes: Denies: Blurred vision, Double vision, Drainage, Redness HEENT: Denies: Difficulty Hearing, Ear Pain, Eye Pain, Nasal Congestion, Sore Throat Cardiovascular: Denies: Chest Pain, Chest Pressure, Chest Tightness, Heaviness, Light Headedness, Palpitations, Syncope Respiratory: Denies: Cough, Hemoptysis, Pleuritic Pain, Shortness of Breath, Sputum production, Wheezing Gastrointestinal: Reports: Abdominal Pain, Constipation, Nausea, Vomiting. Denies: Diarrhea Genitourinary: Denies: Dysuria, Frequency, Hematuria Musculoskeletal: Denies: Arm Pain, Back Pain, Foot Pain Skin: Denies: Dryness, Rash Neurological: Denies: Balance problems, Change in Speech, Slurred speech, Confusion, Focal weakness, Headaches, Incoordination Psychiatric: Denies: Anxiety, Depression Endocrine: Denies: Change in Body Habitus, Polydipsia, Polyuria VTE Information - Inpt Only VTE Present on Admission: No VTE Mechan Device Prophylaxis: None VTE Pharm Prophylaxis ordered?: No Patient Problems: Active and Suspected Problems (Last Reviewed 07/20/19 @ 14:40 by Reyna Hernandez) Abdominal pain (Acute) Dehydration (Acute) Atrial fibrillation with RVR (Acute) - Physical Exam Vitals/I&O's: Vital Signs Temp Pulse Resp BP Pulse Ox 97.8 F 110 H 20 H 112/73 96 10/13/19 00:18 10/13/19 03:08 10/13/19 03:08 10/13/19 03:08 10/13/19 03:08 Oxygen Flow Rate (L/min) 2 Oxygen Delivery Method Nasal Cannula Weight: 220 lb 0.341 oz Body Mass Index (BMI) 30.7 General: Alert, Oriented x3, Cooperative, - - He is distressed because of pain. HEENT: Atraumatic, PERRLA, EOMI, Normocephalic Oral: Moist Mucosa, No Gingival or Mucosal Lesions/ Ulcerations Neck: Supple, No JVD, Negative Carotid Bruits, Trachea Midline, Thyroid Normal Size and Texture Lungs: Clear to auscultation, Normal air movement, No rhonchi, No wheeze, No rales, Diminished Cardiovascular: Normal S1, Normal S2, PMI Normal, Irregular Rate, Tachycardic Abdomen: Bowel Sounds Present, Non Tender, Distended, - - Firm to palpation, no guarding or rigidity. Extremities: No clubbing, No cyanosis, No edema Skin: No rashes, No breakdown Lymphatic: No Cervical, Supraclavicular, or Inguinal Adenopathy Neurological: Cranial nerves II-XII grossly intact, Motor Exam 5/5 strength throughout Psych/Mental Status: Normal Affect, Appropriate, Alert and oriented to time, place, person, mood and affect Laboratory Results 10/13/19 01:00: WBC 13.0 H, RBC 6.13, Hgb 18.4 H*, Hct 53.3, MCV 86.9, MCH 30.0, MCHC 34.5, RDW Std Deviation 39.5, RDW Coeff of Heath 12.7, Plt Count 264, MPV 10.1, Immature Gran % (Auto) 0.400, Neut % (Auto) 79.7 H, Lymph % (Auto) 12.7 L, King % (Auto) 6.8, Eos % (Auto) 0.1, Baso % (Auto) 0.3, Absolute Neuts (auto) 10.4 H, Absolute Lymphs (auto) 1.65, Nucleated RBC % 0 10/13/19 01:00: Sodium 139, Potassium 3.2 L, Chloride 99, Carbon Dioxide 29.0, Anion Gap 11, BUN 27 H, Creatinine 1.09, Estim Creat Clear Calc 64.29, Est GFR (MDRD) Af Amer 85, Est GFR (MDRD) Non-Af 71, BUN/Creatinine Ratio 24.8 H, Glucose 381 H, Calcium 9.0, Total Bilirubin 0.90, AST 23, ALT 38, Alkaline Phosphatase 77, Troponin I < 0.015, Total Protein 6.8, Albumin 3.1 L, Globulin 3.7, Albumin/Globulin Ratio 0.8 L, Lipase 100, TSH 1.16 Clinical Impression(s) from Imaging Studies Acute Abdomen Series 10/13/19 02:00 IMPRESSION: Bilateral basilar atelectasis, otherwise no acute cardiopulmonary process. No signs of bowel obstruction or free air. Electronically Signed: Laura San MD at 2:31 EST , Service support , Assessment/Plan All Active Problems (Last Reviewed 07/20/19 @ 14:40 by Reyna Hernandez) Abdominal pain (Acute) Dehydration (Acute) Atrial fibrillation with RVR (Acute) This is a 74 years old male patient presented to the emergency room because of abdominal pain and constipation, found to have A. fib with RVR, dehydration with hypokalemia and is being admitted for evaluation and treatment. #1 A. fib with RVR: In context of history of paroxysmal A. fib status post ablation and maze procedure. Heart rate has been in the 160s, received IV Cardizem bolus x2 and heart rate slowed down to 110-120. It is probably triggered by abdominal pain and constipation. EKG reviewed, no acute ischemic changes. Troponin is negative. Patient had stress echocardiogram on Jan, 2019 that revealed normal sinus rhythm, no clinical angina and it was normal stress echocardiogram. TSH was normal. Plan: Admit to PCU, cardiac monitoring, replace potassium, check magnesium, start metoprolol p.o. twice daily for rate control, IV metoprolol as needed, cardiology consult, IV fluids, start therapeutic Lovenox twice daily. #2 abdominal pain/constipation: Patient had CT scan abdomen and pelvis without contrast on October 09, 2019 that revealed stable left adrenal gland nodule suggestive of adenoma, sigmoid diverticulosis and moderate amount of fecal material. Patient has been using MiraLAX daily but still had no bowel movement for the last 8 days. LFT and lipase were unremarkable. X-ray abdomen was done today and showed no signs of bowel obstruction or free air. Plan: IV fluids for hydration, magnesium citrate x1, Mycostatin daily, Senokot twice daily, ambulate. #3 severe dehydration/hypokalemia: As indicated by elevated hemoglobin, BUN although his creatinine is normal. Patient clinically severely dehydrated. Plan: IV fluids, encourage oral intake, input output chart, repeat BMP tomorrow morning. #4 CAD status post CABG: Stable, continue aspirin, start metoprolol as above. #5 paroxysmal atrial fibrillation status post ablation and maze procedure: Plan as above. #6 type 2 diabetes mellitus: ADA diet, Accu-Cheks, insulin sliding scale, continue glimepiride and metformin. #7 DVT prophylaxis: Subcu heparin twice daily for anticoagulation. This note was generated with [employer] dictation software. It may contain incorrect words, spelling, and punctuation that were not noted in checking the note before signing. Code Visit Inpatient E&M: 98782 Init Hosp L3
[2019-10-13 03:52] LABS: Magnesium 2.1 mg/dL (1.6-2.6)
[2019-10-13] MEDS: Enoxaparin 100 MG/ML Syringe SC ×2 (03:53→21:56)
[2019-10-13] MEDS: 0.9% Saline Lock 10 ML Syringe IV ×3 (03:53→14:07)
[2019-10-13] MEDS: Magnesium Citrate 300 ML PO (03:55)
[2019-10-13] MEDS: Insulin Lispro 100 UNIT/ML INSULN.PEN SC ×3 (04:09→21:55)
[2019-10-13 04:11] LABS: Bedside Glucose 419 mg/dL (70-110)
[2019-10-13] MEDS: Metoprolol Tartrate 25 MG Tablet PO (04:45)
[2019-10-13] MEDS: Morphine 2 MG/ML Syringe IV (05:38)
[2019-10-13 05:49] LABS: Absolute Lymphocyte Count 0.83 X10^3/uL (0.83-4.51); Absolute Neutrophil Count 12.7 X10^3/uL (2.0-7.7); Basophil# 0.07 X10^3/uL; Basophil% 0.5 % (0-1); Eosinophil# 0.01 X10^3/uL; Eosinophils% 0.1 % (0-5); Lymphocyte # 0.83 X10^3/ul (4.0); Lymphocyte % 5.6 % (19-41); Mean Corp Hgb Conc 32.8 g/dL (32-36); Mean Corpuscular Hgb 29.5 pg (27.0-32.0); Mean Platelet Vol. 10.2 fl (6.2-12.0); Monocyte# 1.14 X10^3/uL; Monocyte% 7.7 % (0-10); NRBC Flagged by Analyzer 0 % (0-5); Neutrophil # 12.65 X10^3/uL (2.7-7.7); Neutrophil % 85.8 % (47-70); Platelet Count 309 K/mm3 (150-450); RBC Distribution Width CV 13.1 % (11.6-14.6); RBC Distribution Width SD 41.6 fl (35.1-43.9); Red Blood Count 6.47 M/mm3 (4.6-6.2); White Blood Count 14.7 K/mm3 (4.4-11.0)
[2019-10-13 05:56] LABS: Hematocrit 58.2 % (40-54)
[2019-10-13 05:58] LABS: Differential Indicated SCAN CRITERIA MET; Hemoglobin 19.1 g/dL (13.0-16.5)
[2019-10-13 06:20] LABS: Anion Gap 16 (5-15); BUN 33 mg/dL (7-18); Calcium,Total 9.2 mg/dL (8.5-10.1); Chloride 99 mmol/L (98-107); Creatinine, Serum 1.65 mg/dL (0.70-1.30); EST Glomerular Filtration Rate 44 mL/min (>60); Est Glom Filt Rate - Afr Amer 53 mL/min (>60); Estimated Creatinine Clearance 42.47 ml/min; Glucose 457 mg/dL (74-106); Potassium 2.9 mmol/L (3.5-5.1); Sodium Level 137 mmol/L (136-145)
[2019-10-13 06:36] LABS: Bedside Glucose 441 mg/dL (70-110)
--- NOTE | 2019-10-13 07:06 | ECHOCS_ITS ---
Reason For Study: Afib, Aflutter Procedure This was a 2D Doppler, Color Flow transthoracic echocardiogram. The study was technically difficult. Contrast injection was performed. Exam performed portable in ICU/CCU. Left Ventricle Normal LV size. Segmental dysfunction with preserved ejection fraction (see wall motion). The estimated ejection fraction is 55 %. No evidence for diastolic dysfunction. Infero-Basal: Hypokinetic. Basal inferoseptal: Hypokinetic. Mid-inferoseptal : Hypokinetic. Mid-anteroseptal : Hypokinetic. Septal Hart : Hypokinetic. Right Ventricle Normal RV size. Normal systolic function. Atria The left atrium is mildly enlarged. Normal right atrium. No doppler evidence for ASD. Mitral Valve There is no mitral annular calcification. Mild focal mitral valve calcification of the anterior leaflet. Trivial mitral valve insufficiency. Tricuspid Valve Normal tricuspid valve. Trivial tricuspid valve insufficiency. Right ventricular systolic pressure estimated to be 21 mmHg. Aortic Valve Trisinus/trileaflet aortic valve. Mild focal aortic valve calcification. Mild (1+) aortic valve insufficiency. Pulmonic Valve The pulmonic valve is not well visualized. Trivial pulmonic valve insufficiency. Great Vessels Normal sized aortic root. Pericardium/Pleural No pericardial effusion. Medication Diluted definity 4ml given slow IV push to enhance endocardial definition. MMode/2D Measurements & Calculations LVIDd: 4.4 cm IVSd: 1.2 cm Ao root diam: 3.3 cm LVIDs: 3.5 cm LVPWd: 1.4 cm RVDd: 3.3 cm FS: 22.2 % LAV(MOD-bp): 45.0 ml LVAd ap4: 32.1 cm2 SV(MOD-sp4): 57.8 ml LAV(MOD-bp) Indexed: 20.5 ml/m2 EDV(MOD-sp4): 109.4 ml LAV(MOD-sp2): 32.9 ml EDV(sp4-el): 112.6 ml LAV(MOD-sp4): 49.4 ml LVAs ap4: 20.3 cm2 ESV(MOD-sp4): 51.7 ml ESV(sp4-el): 51.6 ml EF(MOD-sp4): 52.8 % EF(sp4-el): 54.2 % SV(sp4-el): 61.0 ml LA A4 area: 17.9 cm2 LA dimension(2D): 3.8 cm RA A4 area: 15.1 cm2 Doppler Measurements & Calculations MV E max bhanu: 37.4 cm/sec Lat Peak E' Bhanu: 8.3 cm/sec Med Peak E' Bhanu: 2.7 cm/sec MV A max bhanu: 66.4 cm/sec E/E' lat: 4.5 E/E' med: 13.8 MV E/A: 0.56 Ao V2 max: 97.5 cm/sec AI max bhanu: 355.4 cm/sec LV V1 max: 95.9 cm/sec Ao max P.8 mmHg AI max P.5 mmHg LV V1 max P.7 mmHg Ao V2 mean: 71.2 cm/sec Ao mean P.2 mmHg AI dec slope: 135.6 cm/sec2 Ao V2 VTI: 16.8 cm AI P1/2t: 767.5 msec PA V2 max: 88.0 cm/sec TR max bhanu: 214.2 cm/sec TR max P.3 mmHg Interpretation Summary The study was technically difficult. Contrast injection was performed. Segmental dysfunction with preserved ejection fraction (see wall motion). The estimated ejection fraction is 55 %. The left atrium is mildly enlarged. Mild focal mitral valve calcification of the anterior leaflet. Trivial mitral valve insufficiency. Trivial tricuspid valve insufficiency. Mild focal aortic valve calcification. Mild (1+) aortic valve insufficiency. Trivial pulmonic valve insufficiency. Right ventricular systolic pressure estimated to be 21 mmHg. No evidence for diastolic dysfunction. Ordering Physician: Nena Wilder Referring Physician: Alan Mata Performed By: Maria L Hook, [place], RVT
--- NOTE | 2019-10-13 07:07 | PN_ITS ---
Patient Problems: Active and Suspected Problems (Last Reviewed 07/20/19 @ 14:40 by Reyna Hernandez) Ventricular ectopy (Acute) Electrolyte abnormality (Acute) Abdominal pain (Acute) Dehydration (Acute) Atrial fibrillation with RVR (Acute) Subjective: Patient with ongoing abdominal complaints following admission, aggressive bowel regimen initiated with now stool output. Repeat BMPs with significantly elevated blood sugars and now with anion gap elevation with pending acetone, urinalysis with suspected DKA with initiation of insulin drip and initiation of aggressive IV fluids with some improvement. Patient converted to sinus rhythm and rate has remained controlled although has history of PAF, cardiology following, had been hypotensive initially suspected secondary to recent Cardizem and beta-maria antonia therapy, improved as noted with aggressive hydration given DKA concurrent presentation. Given patient abdominal complaints, discussed patient with general surgery and recommended treatment of DKA and if no improvement consideration for repeat CT scan but deferral at this time. Patient denies fevers, chills, nausea, emesis, chest pain or dyspnea. Objective: Physical Examination: General: awake, alert, oriented x 3, laying in the ICU bed, fatigued appearance, improved since recent bowel movements and insulin drip initiation as well as IV fluids, had been notably hypertensive prior with MAP less than 65. Skin: normal color, turgor, no icterus, cyanosis. HEENT: AT/NC, EOMI, PERRLA, dry MM. Lungs: Diminished breath sounds bilaterally, greater bases, poor effort given abdominal complaints at that time, improving, no rales, ronchi or wheezing. Heart: Converted, currently regular rate and rhythm; no gallop, rub audible. Abdomen: Extremely tender to palpation, tense, diffuse tenderness palpation with voluntary guarding, no specific rebound, hypoactive distant bowel sounds, improved with bowel movement recently, more soft. Extremities: no cyanosis, clubbing, or edema. Neurological: patient awake, alert, oriented x 3; cognitive function appears baseline intact but acute events as noted; pupils equally reactive to light and accomodation; cranial nerves II-XII grossly normal, moving all 4 extremities, no focal deficits, strength severely globally Aminata secondary to acute presentation and status as noted. Psychiatric: affect appears fatigued, uncomfortable, ill-appearing, no acute evidence of depressive or anxiety feelings. Vitals/I&O's: Vital Signs Temp Pulse Resp BP Pulse Ox 97.9 F 89 19 H 106/59 L 96 10/13/19 06:00 10/13/19 06:00 10/13/19 06:00 10/13/19 06:00 10/13/19 06:00 Oxygen Flow Rate (L/min) 2 Oxygen Delivery Method Nasal Cannula Weight: 219 lb 5.759 oz Body Mass Index (BMI) 30.6 Intake and Output for Last 24 Hours 10/11/19 10/12/19 10/13/19 23:59 23:59 23:59 Intake Total 1725 / 1725 Output Total 400 / 400 Balance 1325 / 1325 Laboratory Results 10/13/19 01:00: WBC 13.0 H, RBC 6.13, Hgb 18.4 H*, Hct 53.3, MCV 86.9, MCH 30.0, MCHC 34.5, RDW Std Deviation 39.5, RDW Coeff of Heath 12.7, Plt Count 264, MPV 10.1, Immature Gran % (Auto) 0.400, Neut % (Auto) 79.7 H, Lymph % (Auto) 12.7 L, [place] % (Auto) 6.8, Eos % (Auto) 0.1, Baso % (Auto) 0.3, Absolute Neuts (auto) 10.4 H, Absolute Lymphs (auto) 1.65, Nucleated RBC % 0 10/13/19 01:00: Sodium 139, Potassium 3.2 L, Chloride 99, Carbon Dioxide 29.0, Anion Gap 11, BUN 27 H, Creatinine 1.09, Estim Creat Clear Calc 64.29, Est GFR (MDRD) Af Amer 85, Est GFR (MDRD) Non-Af 71, BUN/Creatinine Ratio 24.8 H, Glucose 381 H, Calcium 9.0, Total Bilirubin 0.90, AST 23, ALT 38, Alkaline Phosphatase 77, Troponin I < 0.015, Total Protein 6.8, Albumin 3.1 L, Globulin 3.7, Albumin/Globulin Ratio 0.8 L, Lipase 100, TSH 1.16 10/13/19 01:00: Magnesium 2.1 10/13/19 04:03: POC Glucose 419 H 10/13/19 05:35: WBC 14.7 H, RBC 6.47 H, Hgb 19.1 H*, Hct 58.2 H, MCV 90.0, MCH 29.5, MCHC 32.8, RDW Std Deviation 41.6, RDW Coeff of [place] 13.1, Plt Count 309, MPV 10.2, Immature Gran % (Auto) 0.300, Neut % (Auto) 85.8 H, Lymph % (Auto) 5.6 L, [place] % (Auto) 7.7, Eos % (Auto) 0.1, Baso % (Auto) 0.5, Absolute Neuts (auto) 12.7 H, Absolute Lymphs (auto) 0.83, Nucleated RBC % 0 10/13/19 05:35: Sodium 137, Potassium 2.9 L, Chloride 99, Carbon Dioxide 22.0, Anion Gap 16 H, BUN 33 H, Creatinine 1.65 H, Estim Creat Clear Calc 42.47, Est GFR (MDRD) Af Amer 53 L, Est GFR (MDRD) Non-Af 44 L, BUN/Creatinine Ratio 20.0, Glucose 457 H*, Calcium 9.2 10/13/19 06:32: POC Glucose 441 H Current Medications Acetaminophen (Tylenol) 650 mg PO Q6H PRN PRN PRN Reason: Pain Score 1-5/Temp > 100.7 F Aspirin (Ecotrin) 81 mg PO DAILY [facility] Enoxaparin Sodium (Lovenox) 100 mg 1 mg/kg (100 mg) SC Q12 [facility] Last Admin: 10/13/19 03:53 Dose: 100 mg Documented by: Glucagon () 1 mg IM .X1 PRN PRN Reason: Hypoglycemia Potassium Chloride/Sodium Chloride () 1,000 mls @ 125 mls/hr IV .Q8H [facility] Last Infusion: 10/13/19 05:41 Dose: 125 mls/hr Documented by: Sodium Chloride () 250 mls @ 15 mls/hr IV .[id number] PRN PRN Reason: Saline Flush Sodium Chloride () 250 mls @ 15 mls/hr IV .[id number] PRN PRN Reason: Additional IVPB Infusion Dextrose (Dextrose 10%-Water) 250 mls @ 999 mls/hr IV .Q16M PRN; Protocol PRN Reason: HYPOGLYCEMIA Insulin Human Lispro (Humalog Kwikpen (Bkc)) 0 unit SC ACHS [facility]; Protocol Last Admin: 10/13/19 04:09 Dose: 11 units Documented by: Lactulose (Chronulac, Cephulac) 20 gm PO BID [facility] Stop: 10/13/19 10:01 Magnesium Hydroxide (Milk Of Magnesia) 30 ml PO DAILY [facility] Metoprolol Tartrate (Lopressor (Beta Maria Antonia)) 25 mg PO BID [facility] Last Admin: 10/13/19 04:45 Dose: 25 mg Documented by: Metoprolol Tartrate (Lopressor (Beta Maria Antonia)) 5 mg IV Q8H PRN PRN PRN Reason: for HR>110, Hold for SBP<110 Morphine Sulfate () 2 mg IV Q3H PRN PRN PRN Reason: Pain Score 6-10/10 Last Admin: 10/13/19 05:38 Dose: 2 mg Documented by: Ondansetron HCl (Zofran) 4 mg IV Q8H PRN PRN PRN Reason: NAUSEA/VOMITING Last Admin: 10/13/19 04:11 Dose: 4 mg Documented by: Senna/Docusate Sodium (Senokot-S, Krista-Colace) 2 tablet PO BID PRN PRN PRN Reason: Constipation Sodium Chloride () 10 - 40 ml IV UD PRN PRN Reason: SALINE FLUSH Last Admin: 10/13/19 05:40 Dose: 10 ml Documented by: STROKE Vital Signs/Narrative: Vital Signs Temp Pulse Resp BP Pulse Ox 10/13/19 06:00 97.9 F 89 19 H 106/59 L 96 10/13/19 05:38 93 10/13/19 05:00 97.8 F 158 H 20 H 142/68 H 94 10/13/19 04:45 170 H 143/106 H 10/13/19 04:30 97.8 F 171 H 22 H 143/106 H 94 10/13/19 03:30 97.8 F 140 H 24 H 119/83 H 94 10/13/19 03:28 129 H 10/13/19 03:08 110 H 20 H 112/73 96 Medical Necessity - Tobacco Use Smoking Status: Former smoker Assessment/Plan All Active Problems (Last Reviewed 07/20/19 @ 14:40 by Reyna Hernandez) Ventricular ectopy (Acute) Electrolyte abnormality (Acute) Abdominal pain (Acute) Dehydration (Acute) Atrial fibrillation with RVR (Acute) The patient is a 74 y/o M w/ PMHx: PAF s/p MAZE, CAD s/p CABG w/ left thoracic artery to LAD, HTN, HLD, Diabetes mellitus type II, Obesity who presents to the [facility] ED on 10/13/19 with history of approximately 1 week of worsening polydipsia, polyuria, constipation with significant abdominal discomfort including ED visit 10/09/[address] abdomen pelvis at that time with noted moderate stool burden but no acute findings, not improving prompting return with at that time palpitations, tachycardia with atrial fibrillation with RVR. 1. DKA w/ Diabetes mellitus type II with recent polydipsia, polyuria likely contributing to acute abdominal pain with constipation: Upon admission patient with normal AG, worsening renal function and evidence AG with hypokalemia, AG 16, BUN/creatinine 33/1.65 with increased to 39/1.88, glucose increase up to 457, hemoglobin A1c obtained 10.7, will initiate and continue on aggressive hydration protocols per DKA, initiated on insulin drip, n.p.o. status, check serial K+, glucose w/ IVF changes pending these levels, serial chemistry, obtain mag, phos w/ repletion as needed, transition to home SC regimen when gap closed w/ overlap on drip, nutrition consultation. 2. Acute constipation with associated abdominal pain, secondary to #1: Patient with recent CT on 10/09/2019 with moderate stool burden but no acute findings, improving currently with aggressive bowel regimen and acute pain also likely secondary to acute DKA, expect improvement with continued insulin drip and treatment of DKA as noted. If not clinically improving or worsens status discussed patient with general surgery him and plan evaluation at that time with CT scan repeat of the abdomen. 3. Acute kidney injury: Secondary to #1. 10/13/19 BUN/Cr 39/1.88, upon admission BUN/creatinine had been 27/1.09 but has increased, prior baseline creatinine noted to be 1.0-1.2. Will hydrate, hold nephrotoxic medications and repeat chemistry in AM. If no improvement would plan FeNa and renal ultrasound assessment but expect improvement with treatment as noted of #1. 4. Hypokalemia: Admission K+ 3.2, supplementation given with ongoing IV supplementation also however given DKA now transition to IV fluids per DKA protocol with supplementation with potassium as needed pending repeat BMPs. 5. Acute Urinary Tract Infection w/ Urinary retention: UA obtained secondary to patient DKA presentation as noted, notable, pending UCx, admission CBC w/ WBC 18 with left shift, repeat 10/13/2019 with WBC 14.7 with left shift, continue IVFs as noted per DKA #1, monitor I/Os, initiate and continue IV Rocephin w/ transition as able pending sensitivities and speciation. 6. Polycythemia, unclear etiology: Suspect secondary to #1 presentation with likely dehydration, continue to aggressively hydrate, trend CBC, admission hemoglobin 18.4, repeat 19.1 but onset DKA at that time, trend. 7. Paroxsymal atrial fibrillation with RVR, improved, converted to sinus rhythm: EKG in ED w/ atrial fibrillation w/ RVR. Patient administered Cardizem bolus x2 in ED well as aggressive beta-maria antonia therapy likely contributing to transient hypotension, converted following transition to ICU, does have PAF history, likely secondary to acute presentations as noted above, troponin normal x1, TSH normal, mag appropriate, continued on therapeutic Lovenox but will need to closely monitor given BRITNEY with alterations or potential transition to heparin drip as needed. Echocardiogram repeat requested. Cardiology following. 8. CAD: Status post prior CABG, continued on aspirin, metoprolol with hold as needed given transient hypotension although improving with IV fluids, cardiology following, maintained currently as noted on therapeutic Lovenox but may need alteration given renal function increased although suspect will improve with aggressive hydration given #1. 9. Hypertension: Continue home regimen including metoprolol, PRN hydralazine. 10. Hyperlipidemia: Not on agent, unclear possibly intolerant, cardiology following as noted. 11. DVT prophylaxis: SCDs, therapeutic Lovenox with alterations as needed given worsening renal function. Prolonged care time: Patient evaluation above initial evaluation of 75 minutes for daily progress, additional 135 minutes with significant new onset diagnoses including DKA, BRITNEY, discussions with patient and family, more aggressive bowel regimen interventions, evaluations for concern acute abdomen, discussion with consultants and transition patient to intensive's care status. Code Visit Procedures: [id number] Prolonged Physician INPT - Prolonged care time: 135 minutes above initial personal 75 minute initial evaluation time. Billing [id number] x 1 and [id number] x 1.
[2019-10-13 08:01] LABS: Hemoglobin A1c 10.7 % (4.2-6.3)
[2019-10-13] MEDS: Potassium Chloride 10mEq/100mL 10 MEQ/100 ML IV.SOLN. 100 MEQ IV BOLUS ×4 (08:25→12:44)
[2019-10-13 09:04] LABS: Differential Comment SCANNED
[2019-10-13 09:05] LABS: Platelet Estimate ADEQUATE (ADEQ); Red Cell Morphology NORM C+C NORMAL (NORM C&C)
[2019-10-13] MEDS: Lactulose 20 GM/30 ML UDC PO ×2 (09:07→21:55)
[2019-10-13 10:01] LABS: Bedside Glucose > 500 mg/dL (70-110)
[2019-10-13] MEDS: 0.9% Normal Saline 1,000 ML 999 ML IV ×4 (10:15→18:11)
[2019-10-13] MEDS: Insulin Lispro 100 UNIT/ML INSULN.PEN 20 UNIT SC (11:41)
[2019-10-13 11:55] LABS: Bedside Glucose > 500 mg/dL (70-110)
--- NOTE | 2019-10-13 12:12 | PCM.CONS.C ---
Problem List (1) Atrial fibrillation with RVR Status: Acute (2) Ventricular ectopy Status: Acute (3) CAD in [place] artery Status: Chronic (4) Postsurgical aortocoronary bypass status Status: Chronic Comment: left thoracic artery to LAD,Maze procedure (5) History of radiofrequency ablation (RFA) procedure for cardiac arrhythmia Status: Chronic Comment: S/P pulmonary vein isolation/ablation 11/2009 and MAZE procedure (6) Pure hypercholesterolemia Status: Chronic (7) Diabetes mellitus type II, controlled Status: Chronic (8) Dehydration Status: Acute (9) Abdominal pain Status: Acute (10) Electrolyte abnormality Status: Acute Reason for Consult Date of Consultation: 10/13/19 History of Present Illness: The patient is a 74 year old white male past cardiovascular history of CAD status post CABG (MAHONEY to the LAD), paroxysmal atrial fibrillation, status post pulmonary vein isolation/ablation and Maze procedure, hyperlipidemia, diabetes mellitus, who presents for concerns of abdominal discomfort with concerns of dehydration and constipation. The patient states he had been in his usual state of health with no ongoing issues of acute chest discomfort, difficulty breathing, obvious palpitations, or near syncope/syncope. He states he has had no other recent illnesses that he is aware of. He does not recall any change of medications. He notes that he began to have abdominal discomfort. Apparently he has had nausea and emesis. He states he has not had a bowel movement for several days. He is undergone evaluation with abdominal/pelvic CT scan and CTA which reportedly demonstrated a stable right renal artery aneurysm but no acute changes were reported. Based upon his ongoing symptoms/abdominal discomfort he presented to the emergency department for further evaluation. As his evaluation progressed he was noted to have episodes of atrial fibrillation with RVR along with findings that appear compatible with aberrancy and ventricular ectopy with PVCs and ventricular couplets/triplets. He had been treated with a combination of rate limiting medications such as IV diltiazem and subsequently IV and oral beta-blockers. At the moment his rhythm is now sinus rhythm. He was placed under PCU status for further evaluation and care. He had a troponin I level which was negative. His ECG demonstrated atrial fibrillation with poor R wave progression with an anteroseptal IA pattern of indeterminate age cannot be excluded and nonspecific ST and T wave changes. He had an acute abdominal series which did not appear to demonstrate any acute cardiopulmonary disease process. He was noted to have what was concerns of possible fecal impaction but no report of bowel obstruction. He has been started on laxative therapy. [] Past Medical History Allergies/Adverse Reactions: Allergies ATB - CAN NOT REMEMBER NAME Allergy (Uncoded 10/13/19 00:26) Rash Home Medications: Ambulatory Orders Medication Instructions Recorded aspirin 81 mg tablet,delayed 81 mg PO DAILY 05/25/18 release nitroglycerin 0.4 mg sublingual 0.4 mg SUBLINGUAL Q5-15M PRN #25 05/26/18 tablet tab acetaminophen 325 mg capsule 325 mg PO Q6H 07/20/19 metformin 500 mg tablet 1,000 mg PO BID 90 Days #360 tab 07/20/19 sitagliptin 100 mg tablet 100 mg PO DAILY 90 Days #90 tab 07/20/19 Polyethylene Glycol 3350 [Miralax] 17 gm PO DAILY #5 packet 10/09/19 RX: Glimepiride 2 mg PO DAILY 10/13/19 Past Medical History (Chronic Problems): Chronic Problems (Last Reviewed 07/20/19 @ 14:40 by Reyna Hernandez) CAD in [place] artery (Chronic) Pure hypercholesterolemia (Chronic) History of radiofrequency ablation (RFA) procedure for cardiac arrhythmia (Chronic ~11/2009) S/P pulmonary vein isolation/ablation 11/2009 and MAZE procedure Diabetes mellitus type II, controlled (Chronic) Paroxysmal atrial fibrillation (Chronic) S/P pulmonary vein isolation/ablation and Maze procedure in November 2009; Postsurgical aortocoronary bypass status (Chronic ~11/29/09) left thoracic artery to LAD,Maze procedure Atherosclerotic heart disease of [place] coronary artery with unstable angina pectoris (Chronic) Surgical History: cholecystectomy, coronary bypass surgery Psychiatric History: No pertinent psych hx - *Family History Maternal Family History: Family History (Last Reviewed 10/13/19 @ 03:15 by Harleen Castaneda MD) Father Cancer Mother Diabetes Brother Diabetes Brother Diabetes Son CAD (coronary artery disease) Lives: Spouse/ Significant Other Smoking Status: Former smoker Alcohol: None Drugs: None Review of Systems - Review of Systems General: Denies: Fever, Night Sweats, Fatigue Cardiovascular: Denies: Chest Discomfort, Shortness of Breath, Orthopnea, PND, Peripheral Edema, Palpitations, Lightheadedness, Dizziness, Near Syncope, Syncope Respiratory: Denies: Cough, Sputum Production, Hemoptysis Gastrointestinal: Reports: Abdominal Discomfort, Nausea, Emesis, Constipation. Denies: Hematemesis, Hematochezia, Melena Genitourinary: Denies: Dysuria, Hematuria Skin: Denies: Rash Objective: Vital Signs Temp Pulse Resp BP Pulse Ox 97.6 F L 57 L 19 H 77/39 L 94 10/13/19 08:00 10/13/19 10:45 10/13/19 10:45 10/13/19 10:45 10/13/19 10:45 Oxygen Flow Rate (L/min) 2 Oxygen Delivery Method Nasal Cannula Weight: 219 lb 5.759 oz Body Mass Index (BMI) 30.6 Intake and Output for Last 24 Hours 10/11/19 10/12/19 10/13/19 23:59 23:59 23:59 Intake Total 1925 / 1925 Output Total 400 / 400 Balance 1525 / 1525 10/13/19 01:00: WBC 13.0 H, RBC 6.13, Hgb 18.4 H*, Hct 53.3, MCV 86.9, MCH 30.0, MCHC 34.5, Plt Count 264, MPV 10.1, Immature Gran % (Auto) 0.400, Neut % (Auto) 79.7 H, Lymph % (Auto) 12.7 L, [place] % (Auto) 6.8, Eos % (Auto) 0.1, Baso % (Auto) 0.3, Absolute Neuts (auto) 10.4 H, Nucleated RBC % 0 10/13/19 01:00: Sodium 139, Potassium 3.2 L, Chloride 99, Carbon Dioxide 29.0, Anion Gap 11, BUN 27 H, Creatinine 1.09, Est GFR (MDRD) Af Amer 85, Est GFR (MDRD) Non-Af 71, BUN/Creatinine Ratio 24.8 H, Glucose 381 H, Calcium 9.0, Total Bilirubin 0.90, Troponin I < 0.015 10/13/19 01:00: Magnesium 2.1 10/13/19 05:35: WBC 14.7 H, RBC 6.47 H, Hgb 19.1 H*, Hct 58.2 H, MCV 90.0, MCH 29.5, MCHC 32.8, Plt Count 309, MPV 10.2, Immature Gran % (Auto) 0.300, Neut % (Auto) 85.8 H, Lymph % (Auto) 5.6 L, [place] % (Auto) 7.7, Eos % (Auto) 0.1, Baso % (Auto) 0.5, Absolute Neuts (auto) 12.7 H, Nucleated RBC % 0 10/13/19 05:35: Sodium 137, Potassium 2.9 L, Chloride 99, Carbon Dioxide 22.0, Anion Gap 16 H, BUN 33 H, Creatinine 1.65 H, Est GFR (MDRD) Af Amer 53 L, Est GFR (MDRD) Non-Af 44 L, BUN/Creatinine Ratio 20.0, Glucose 457 H*, Calcium 9.2 10/13/19 05:35: Hemoglobin A1c 10.7 H Rhythm: Sinus rhythm; paroxysmal atrial fibrillation with RVR; atrial fibrillation with aberrancy; PVCs/ventricular couplets/ventricular triplets EKG: Atrial fibrillation; poor R wave progression; anteroseptal IA of indeterminate age cannot be excluded; nonspecific ST/T wave abnormality ECHO: 11-16-13 Interpretation Summary Segmental dysfunction with preserved ejection fraction (see wall motion). The estimated ejection fraction is 55 %. Paradoxical septal wall motion c/w a post open heart surgery state. The left atrium is mildly enlarged. Mild (1+) mitral valve insufficiency. Mild tricuspid valve insufficiency. Mild focal aortic valve thickening. Trivial aortic valve insufficiency. Trivial pulmonic valve insufficiency. Right ventricular systolic pressure estimated to be 29 mmHg. Stress Test: 01-16-19 Interpretation Summary Exercise stress echocardiogram. Resting EKG demonstrates normal sinus rhythm with a rate of 68 bpm normal intervals are noted resting blood pressure is 128/70 mmHg. The patient exercised according to the regular George protocol for a total duration of 6 minutes. Patient completed stage II of the George protocol the maximum heart rate attained was 131 bpm which was 88% of maximum predicted heart rate the maximum workload was 7 metabolic equivalents. At rest there were no ST or T wave changes noted suggest ischemia. At peak exercise nonspecific ST changes were noted with number the criteria for ischemia. During recovery T wave inversions were noted in lead II, III, aVF, V5 and V6. No clinical angina was noted the test was terminated due to leg fatigue. Stress echocardiogram. Resting and stress echocardiographic images were obtained with Definity enhancement. The resting ejection fraction was 55% with a peak ejection fraction of 65% and no obvious wall motion abnormalities present. Conclusion: Normal stress echocardiographic evaluation after workload of 7 metabolic equivalents. No clinical angina noted. Cardiac Cath: Well?a?2008 Left ventricle with mild hypokinesis of the anterior segment and an LVEF 55% Left main coronary artery with mid 10 to 25% smooth eccentric appearing stenosis LAD status post septal vmware architect and diagonal branch with 100% occlusion with the mid to distal to apical LAD filling from right to left collateral flow Diagonal branch with ostial/proximal 85 to 95% appearing stenosis LCx with minimal luminal irregularities Intermediate ramus with proximal to mid 25% eccentric appearing stenosis RCA being a large dominant vessel with diffuse 25% eccentric appearing stenosis and right to left collateral flow to the LAD system CT Surgery: November,, at [facility]; MAHONEY to the LAD CXR: As noted above Assessment/Plan 1. Paroxysmal atrial fibrillation with rapid ventricular response At the present time the patient is now back in sinus rhythm. He will continue to be monitored. He will continue rate control therapy. Depending upon his clinical course he may need to be considered for antiarrhythmic therapy. Also depending upon his clinical course he may need to be considered for anticoagulant therapy unless otherwise contraindicated. He was also continue electrolyte supplementation as needed. He will need to be monitored for any other obvious etiologies,, other than his hypokalemia and his known cardiovascular disease process and his underlying acute process, that may be contributing to his recurrence of his atrial dysrhythmia. 2. Ventricular ectopy The patient has been noted to have evidence of wide-complex beat/rhythm. This appears to be a combination of aberrancy as well as ventricular ectopy. He will continue to be followed/monitored. He will continue electrolyte supplementation as deemed appropriate. At the moment he will continue medical management. This will include beta-immanuel therapy. Depending upon his course he may need antiarrhythmic therapy. 3. CAD status post CABG He does not appear to have evidence at the moment of acute coronary syndrome. He will need to continue risk factor modification medical therapy as deemed appropriate. 4. Hyperlipidemia He has been on lipid-lowering therapy in the past. This should be reinitiated, barring unforeseen contraindications, to assist with his cardiovascular risk factors. 5. Diabetes mellitus He will need to continue evaluation care per internal medicine. 6. Dehydration He has been felt to be dehydrated. He will continue IV fluid supplements as deemed appropriate. 7. Abdominal discomfort He is undergoing evaluation care by internal medicine. Depending upon his clinical course he may need additional noninvasive studies and/or surgical consultation. 8. Electrolyte disturbance He does have an underlying electrolyte disturbance. Again this could be a contributing factor to his cardiac dysrhythmias. He will continue electrolyte supplementation as deemed appropriate. Comment: The above was discussed and reviewed with the patient and Dr. Wilder. This note was generated using a voice recognition system and there may be incorrect words, spelling or punctuation that were not noted when reviewing the office note prior to saving.
[2019-10-13] MEDS: Fleet Enema 1 ML RECTAL (12:34)
[2019-10-13 12:51] LABS: Allen Test POS; Base Excess -2 mmol/L (-2 to +2); Bicarbonate 23.1 mmol/L (22-26); Blood Gas Specimen Type ART; O2 Delivery Device Nasal Can; PO2 61 mmHG (75-100); SITE R Radial; SO2 90 % (95-99); Time Given 1245; Total Carbon Dioxide 24 mmol/L; pCO2 39.6 mmHg (35-45); pH 7.38 (7.35-7.45)
[2019-10-13 13:16] LABS: Anion Gap 11 (5-15); BUN 39 mg/dL (7-18); BUN/Creat Ratio 20.7 RATIO (10-20); Calcium,Total 8.5 mg/dL (8.5-10.1); Chloride 102 mmol/L (98-107); Creatinine, Serum 1.88 mg/dL (0.70-1.30); EST Glomerular Filtration Rate 38 mL/min (>60); Est Glom Filt Rate - Afr Amer 46 mL/min (>60); Estimated Creatinine Clearance 37.27 ml/min; Glucose 409 mg/dL (74-106); Potassium 3.1 mmol/L (3.5-5.1); Sodium Level 140 mmol/L (136-145)
[2019-10-13 13:18] LABS: Cholesterol 187 mg/dL (200); High Density Lipoprotein 38 mg/dL; Triglycerides 135 mg/dL; Very Low Density Lipoprotein 27 mg/dL (5-40)
[2019-10-13 13:18] LABS: Phosphorus 5.4 mg/dL (2.5-4.9)
[2019-10-13 13:22] LABS: Color, Urine Brown (Yellow); Glucose, Dipstick 1000 mg/dl (Normal); Ketone-Dipstick 5 mg/dl (Negative); Leukocyte Esterase-Dipstick 500 /ul (Negative); Nitrite-Dipstick Positive (Negative); Occult Blood-Urine 250 /ul (Negative); Protein-Dipstick 100 mg/dl (Negative); Specific Gravity, Urine 1.025 (1.002-1.030); Urine Clarity Sl. Cloudy (Clear); Urine Urobilinogen 8 mg/dl (Normal)
[2019-10-13 13:23] LABS: Mucous, Urine 0 SEEN /hpf (<or=2+); Squamous Epithelial Cells - UA 0 SEEN /hpf (0-5)
[2019-10-13 13:24] LABS: Urine Bilirubin Dipstick 3 mg/dL (Negative)
[2019-10-13 13:29] LABS: Red Blood Cells-Urine 10-25 SEEN /hpf (0-5); White Blood Cells 10-25 SEEN /hpf (0-5)
[2019-10-13 13:30] LABS: Bacteria 1+ /hpf (None Seen)
[2019-10-13 13:41] LABS: Bedside Glucose 369 mg/dL (70-110)
[2019-10-13] MEDS: Ceftriaxone 1 GM/50 ML BAG IV (14:06)
[2019-10-13] MEDS: 0.9% Normal Saline 1,000 ML 150 ML IV (14:06)
[2019-10-13 15:26] LABS: Bedside Glucose 303 mg/dL (70-110)
[2019-10-13 15:26] LABS: Bedside Glucose 312 mg/dL (70-110)
[2019-10-13 16:31] LABS: Bedside Glucose 288 mg/dL (70-110)
[2019-10-13 16:55] LABS: Anion Gap 8 (5-15); BUN 41 mg/dL (7-18); Calcium,Total 8.2 mg/dL (8.5-10.1); Chloride 104 mmol/L (98-107); Creatinine, Serum 1.95 mg/dL (0.70-1.30); EST Glomerular Filtration Rate 36 mL/min (>60); Est Glom Filt Rate - Afr Amer 44 mL/min (>60); Estimated Creatinine Clearance 35.93 ml/min; Glucose 278 mg/dL (74-106); Potassium 3.1 mmol/L (3.5-5.1); Sodium Level 141 mmol/L (136-145)
[2019-10-13 17:16] LABS: Bedside Glucose 258 mg/dL (70-110)
--- NOTE | 2019-10-13 18:37 | NURSING ---
education re chronic illness deferred till acute illness resolving
[2019-10-13 20:26] LABS: Anion Gap 6 (5-15); BUN 42 mg/dL (7-18); BUN/Creat Ratio 23.5 RATIO (10-20); Calcium,Total 7.7 mg/dL (8.5-10.1); Chloride 108 mmol/L (98-107); Creatinine, Serum 1.79 mg/dL (0.70-1.30); EST Glomerular Filtration Rate 40 mL/min (>60); Est Glom Filt Rate - Afr Amer 48 mL/min (>60); Estimated Creatinine Clearance 39.15 ml/min; Glucose 200 mg/dL (74-106); Potassium 3.3 mmol/L (3.5-5.1); Sodium Level 141 mmol/L (136-145)
--- NOTE | 2019-10-13 20:59 | RAD_ITS ---
STUDY: X-RAY CHEST REASON FOR EXAM: Male, 74 years old. HYPOXIA TECHNIQUE: Portable chest. COMPARISON: 10/13/2019 1:58 AM. 12/06/2015. FINDINGS: No pleural effusion. Increased opacity in the left lung base. Opacity in the right hilar and perihilar region, new compared to the prior study. Normal size heart. Normal mediastinum and parminder. Normal visualized pulmonary arteries. Normal visualized aortic arch and descending thoracic aorta. Normal visualized thoracic spine. Normal visualized ribs, clavicles, and shoulders. There is no demonstrated abnormality of the visualized soft tissue structures of the upper abdomen. RAD/Chest 1 View (Portable) IMPRESSION: 1. Left base atelectasis is favored over pneumonia. 2. New right hilar opacity, question atelectasis or mild pulmonary edema. Electronically Signed: Bibi Hess MD at 23:34 EST Tel , Service support ,
[2019-10-13 21:21] LABS: Absolute Lymphocyte Count 0.57 X10^3/uL (0.83-4.51); Absolute Neutrophil Count 3.3 X10^3/uL (2.0-7.7); Basophil# 0.03 X10^3/uL; Basophil% 0.7 % (0-1); Hematocrit 44.9 % (40-54); Hemoglobin 14.6 g/dL (13.0-16.5); Lymphocyte # 0.57 X10^3/ul (4.0); Mean Corp Hgb Conc 32.5 g/dL (32-36); Mean Corpuscular Hgb 29.4 pg (27.0-32.0); Mean Corpuscular Volume 90.5 fL (80-94); Mean Platelet Vol. 10.3 fl (6.2-12.0); Monocyte# 0.43 X10^3/uL; Monocyte% 9.8 % (0-10); NRBC Flagged by Analyzer 0 % (0-5); Neutrophil # 3.34 X10^3/uL (2.7-7.7); POSITIVE DIFFERENTIAL YES; POSITIVE MORPHOLOGY YES; Platelet Count 202 K/mm3 (150-450); RBC Distribution Width CV 13.3 % (11.6-14.6); RBC Distribution Width SD 43.6 fl (35.1-43.9); Red Blood Count 4.96 M/mm3 (4.6-6.2); White Blood Count 4.4 K/mm3 (4.4-11.0)
[2019-10-13 21:23] LABS: Differential Indicated SCAN CRITERIA MET
[2019-10-13 22:00] LABS: Bedside Glucose 221 mg/dL (70-110)
--- NOTE | 2019-10-13 23:08 | RAD_ITS ---
STUDY: X-RAY CHEST REASON FOR EXAM: Male, 74 years old. Respiratory failure TECHNIQUE: Single AP portable view of the chest. COMPARISON: Earlier today FINDINGS: ET tube tip is 3 cm above the katarzyna, NG tube tip not seen but is below the diaphragm. Lungs are expanded with bibasilar infiltrates, no demonstrated effusions. There is no demonstrated pleural abnormality. Sternal cerclage wires and vascular clips are present from a prior sternotomy and coronary artery bypass graft procedure (CABG). Normal mediastinum and parminder. Normal visualized pulmonary arteries. Normal visualized aortic arch and descending thoracic aorta. There are diffuse degenerative changes of the visualized thoracic spine. There is degenerative osteoarthritis of the bilateral shoulders. There is no demonstrated abnormality of the visualized soft tissue structures of the upper abdomen. RAD/Chest 1 View (Portable) IMPRESSION: ET tube tip 3 cm above the katarzyna, NG tube tip not seen but is below the diaphragm Bibasilar infiltrates without effusions Degenerative bony changes Electronically Signed: Caesar Musa MD at 23:48 EST , Service support ,
--- NOTE | 2019-10-13 23:10 | RAD_ITS ---
STUDY: X-RAY - ABDOMEN/PELVIS REASON FOR EXAM: Male, 74 years old. OG placement TECHNIQUE: Portable abdomen. COMPARISON: 2:00 AM. FINDINGS: Bibasilar atelectasis. Orogastric tube terminates in stomach. Nonobstructive bowel gas pattern. Degenerative changes of the thoracic spine. Soft tissues and bony structures are otherwise unremarkable. RAD/Abdomen Single View (Portable) IMPRESSION: 1. OG tube terminates in the stomach. 2. Bibasilar atelectasis. Electronically Signed: Bibi Hess MD at 23:45 EST Tel , Service support ,
--- NOTE | 2019-10-13 23:25 | CON.PCM_ITS ---
Problem List (1) GI bleed Status: Acute Qualifiers: GI bleed type/associated pathology: gastrointestinal hemorrhage with hematemesis Qualified Code(s): K92.0 - Hematemesis Reason for Consult Date of Consultation: 10/13/19 Reason for Consultation: Upper GI bleed History of Present Illness: The patient is a 74 year old M who was admitted earlier this morning with abdomi nal pain. The patient started complaining of worsening abdominal pain about 2 hours ago and started having coffee-ground emesis. The patient was subsequently intubated. 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) Pure hypercholesterolemia (Chronic) History of radiofrequency ablation (RFA) procedure for cardiac arrhythmia (Chronic ~11/2009) S/P pulmonary vein isolation/ablation 11/2009 and MAZE procedure Diabetes mellitus type II, controlled (Chronic) Paroxysmal atrial fibrillation (Chronic) S/P pulmonary vein isolation/ablation and Maze procedure in November 2009; Postsurgical aortocoronary bypass status (Chronic ~11/29/09) left thoracic artery to LAD,Maze procedure 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) Medical History: Medical History (Last Reviewed 07/20/19 @ 14:40 by Reyna Hernandez) Diabetes mellitus type II, controlled (Chronic) E11.9 Paroxysmal atrial fibrillation (Chronic) I48.0 S/P pulmonary vein isolation/ablation and Maze procedure in November 2009; 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) I25.110 Hx of pancreatitis Z87.19 Allergies ATB - CAN NOT REMEMBER NAME Allergy (Uncoded 10/13/19 00:26) Rash Home Medications: Ambulatory Orders Medication Instructions Recorded aspirin 81 mg tablet,delayed 81 mg PO DAILY 05/25/18 release nitroglycerin 0.4 mg sublingual 0.4 mg SUBLINGUAL Q5-15M PRN #25 05/26/18 tablet tab acetaminophen 325 mg capsule 325 mg PO Q6H 07/20/19 metformin 500 mg tablet 1,000 mg PO BID 90 Days #360 tab 07/20/19 sitagliptin 100 mg tablet 100 mg PO DAILY 90 Days #90 tab 07/20/19 Polyethylene Glycol 3350 [Miralax] 17 gm PO DAILY #5 packet 10/09/19 Glimepiride 2 mg PO DAILY 10/13/19 Surgical History: Surgical History (Last Updated 10/13/19 @ 02:51 by Harleen Castaneda MD) History of radiofrequency ablation (RFA) procedure for cardiac arrhythmia (Chronic) Onset Date: ~11/2009 Z98.890 S/P pulmonary vein isolation/ablation 11/2009 and MAZE procedure Postsurgical aortocoronary bypass status (Chronic) Onset Date: ~11/29/09 Z95.1 left thoracic artery to LAD,Maze procedure History of left heart catheterization Z98.890 History of cholecystectomy Z90.49 History of cholecystectomy Z90.49 History of removal of cyst Z98.890 back of neck Surgical History: cholecystectomy, coronary bypass surgery Psychiatric History: No pertinent psych hx Lives: Spouse/ Significant Other Smoking Status: Former smoker Alcohol: None Drugs: None - *Family History Maternal Family History: Family History (Last Reviewed 10/13/19 @ 03:15 by Harleen Castaneda MD) Father Cancer Mother Diabetes Brother Diabetes Brother Diabetes Son CAD (coronary artery disease) Review of Systems Unable to obtain accurate/complete ROS d/t: Patient intubated Patient Problems: Active and Suspected Problems (Last Reviewed 07/20/19 @ 14:40 by Reyna Hernandez) Ventricular ectopy (Acute) Electrolyte abnormality (Acute) GI bleed (Acute) Abdominal pain (Acute) Dehydration (Acute) Atrial fibrillation with RVR (Acute) - Physical Exam Vitals/I&O's: Vital Signs Temp Pulse Resp BP Pulse Ox 97.9 F 77 25 H 101/57 L 89 10/13/19 18:00 10/13/19 18:30 10/13/19 18:30 10/13/19 18:30 10/13/19 18:30 Oxygen Flow Rate (L/min) 4 Oxygen Delivery Method Nasal Cannula Weight: 219 lb 5.759 oz Body Mass Index (BMI) 30.6 Finger Stick Blood Glucose 303 Intake and Output for Last 24 Hours 10/11/19 10/12/19 10/13/19 23:59 23:59 23:59 Intake Total 8687.36 / 8687.36 Output Total 500 / 500 Balance 8187.36 / 8187.36 General: Disoriented HEENT: Atraumatic Abdomen: Soft, Distended Musculoskeletal: No Muscle Wasting Laboratory Results 10/13/19 01:00: WBC 13.0 H, RBC 6.13, Hgb 18.4 H*, Hct 53.3, MCV 86.9, MCH 30.0, MCHC 34.5, RDW Std Deviation 39.5, RDW Coeff of Heath 12.7, Plt Count 264, MPV 10.1, Immature Gran % (Auto) 0.400, Neut % (Auto) 79.7 H, Lymph % (Auto) 12.7 L, [place] % (Auto) 6.8, Eos % (Auto) 0.1, Baso % (Auto) 0.3, Absolute Neuts (auto) 10.4 H, Absolute Lymphs (auto) 1.65, Nucleated RBC % 0 10/13/19 01:00: Sodium 139, Potassium 3.2 L, Chloride 99, Carbon Dioxide 29.0, Anion Gap 11, BUN 27 H, Creatinine 1.09, Estim Creat Clear Calc 64.29, Est GFR (MDRD) Af Amer 85, Est GFR (MDRD) Non-Af 71, BUN/Creatinine Ratio 24.8 H, Glucose 381 H, Calcium 9.0, Total Bilirubin 0.90, AST 23, ALT 38, Alkaline Phosphatase 77, Troponin I < 0.015, Total Protein 6.8, Albumin 3.1 L, Globulin 3.7, Albumin/Globulin Ratio 0.8 L, Lipase 100, TSH 1.16 10/13/19 01:00: Magnesium 2.1 10/13/19 04:03: POC Glucose 419 H 10/13/19 05:35: WBC 14.7 H, RBC 6.47 H, Hgb 19.1 H*, Hct 58.2 H, MCV 90.0, MCH 29.5, MCHC 32.8, RDW Std Deviation 41.6, RDW Coeff of Heath 13.1, Plt Count 309, MPV 10.2, Immature Gran % (Auto) 0.300, Neut % (Auto) 85.8 H, Lymph % (Auto) 5.6 L, [place] % (Auto) 7.7, Eos % (Auto) 0.1, Baso % (Auto) 0.5, Absolute Neuts (auto) 12.7 H, Absolute Lymphs (auto) 0.83, Nucleated RBC % 0, Differential Comment SCANNED, Platelet Estimate ADEQUATE, RBC Morphology NORM C+C 10/13/19 05:35: Sodium 137, Potassium 2.9 L, Chloride 99, Carbon Dioxide 22.0, Anion Gap 16 H, BUN 33 H, Creatinine 1.65 H, Estim Creat Clear Calc 42.47, Est GFR (MDRD) Af Amer 53 L, Est GFR (MDRD) Non-Af 44 L, BUN/Creatinine Ratio 20.0, Glucose 457 H*, Calcium 9.2, Triglycerides 135, Cholesterol 187, LDL Cholesterol 122, VLDL Cholesterol 27, HDL Cholesterol 38 L 10/13/19 05:35: Hemoglobin A1c 10.7 H 10/13/19 06:32: POC Glucose 441 H 10/13/19 09:44: POC Glucose > 500 H* 10/13/19 11:35: POC Glucose > 500 H* 10/13/19 11:59: Phosphorus 5.4 H 10/13/19 12:00: Sodium 140, Potassium 3.1 L, Chloride 102, Carbon Dioxide 27.0, Anion Gap 11, BUN 39 H, Creatinine 1.88 H, Estim Creat Clear Calc 37.27, Est GFR (MDRD) Af Amer 46 L, Est GFR (MDRD) Non-Af 38 L, BUN/Creatinine Ratio 20.7 H, Glucose 409 H, Calcium 8.5 10/13/19 12:06: Acetone Level NEGATIVE 10/13/19 12:45: Specimen Type ART, Sample Site R Radial, pH 7.38, Bicarbonate Actual 23.1, POC Total CO2 24, Base Excess -2, O2 Saturation 90 L, ABG pCO2 39.6, ABG pO2 61 L, Dominick Test POS, O2 Delivery Device Nasal Can, Liter Flow 4.0, Blood Gas Notified Whom RN, Blood Gas Notified Time 1245 10/13/19 13:00: Urine Color Brown, Urine Clarity Sl. Cloudy, Urine pH 6.0, Ur Specific [place] 1.025, Urine Protein 100 H, Urine Glucose (UA) 1000 H, Urine Ketones 5 H, Urine Occult Blood 250 H, Urine Nitrite Positive H, Urine Bilirubin 3 H, Urine Urobilinogen 8 H, Ur Leukocyte Esterase 500 H, Urine RBC 10-25 SEEN, Urine WBC 10-25 SEEN, Ur Squamous Epith Cells 0 SEEN, Urine Bacteria 1+, Urine Mucus 0 SEEN 10/13/19 13:17: POC Glucose 369 H 10/13/19 14:02: POC Glucose 312 H 10/13/19 15:06: POC Glucose 303 H 10/13/19 16:19: POC Glucose 288 H 10/13/19 16:20: Sodium 141, Potassium 3.1 L, Chloride 104, Carbon Dioxide 29.0, Anion Gap 8, BUN 41 H, Creatinine 1.95 H, Estim Creat Clear Calc 35.93, Est GFR (MDRD) Af Amer 44 L, Est GFR (MDRD) Non-Af 36 L, BUN/Creatinine Ratio 21.0 H, Glucose 278 H, Calcium 8.2 L 10/13/19 17:13: POC Glucose 258 H 10/13/19 20:00: Sodium 141, Potassium 3.3 L, Chloride 108 H, Carbon Dioxide 27.0, Anion Gap 6, BUN 42 H, Creatinine 1.79 H, Estim Creat Clear Calc 39.15, Est GFR (MDRD) Af Amer 48 L, Est GFR (MDRD) Non-Af 40 L, BUN/Creatinine Ratio 23.5 H, Glucose 200 H, Calcium 7.7 L 10/13/19 21:10: WBC 4.4, RBC 4.96, Hgb 14.6, Hct 44.9, MCV 90.5, MCH 29.4, MCHC 32.5, RDW Std Deviation 43.6, RDW Coeff of [place] 13.3, Plt Count 202, MPV 10.3, Immature Gran % (Auto) 0.500, Neut % (Auto) 76.0 H, Lymph % (Auto) 13.0 L, [place] % (Auto) 9.8, Eos % (Auto) 0.0, Baso % (Auto) 0.7, Absolute Neuts (auto) 3.3, Absolute Lymphs (auto) 0.57 L, Nucleated RBC % 0, Differential Comment 10/13/19 21:50: POC Glucose 221 H 10/13/19 22:50: Blood Type Cancelled, Antibody Screen Cancelled 10/13/19 22:50: Crossmatch See Detail Current Medications Acetaminophen (Tylenol) 650 mg PO Q6H PRN PRN PRN Reason: Pain Score 1-5/Temp > 100.7 F Albuterol/Ipratropium (Duoneb) 3 ml INHALATION Q6H.RT KENNA Aspirin (Ecotrin) 81 mg PO DAILY [facility] Last Admin: 10/13/19 12:39 Dose: Not Given Documented by: Enoxaparin Sodium (Lovenox) 100 mg 1 mg/kg (100 mg) SC Q12 [facility] Last Admin: 10/13/19 21:56 Dose: 100 mg Documented by: Glucagon () 1 mg IM .X1 PRN PRN Reason: Hypoglycemia Sodium Chloride () 250 mls @ 15 mls/hr IV .[id number] PRN PRN Reason: Saline Flush Sodium Chloride () 250 mls @ 15 mls/hr IV .[id number] PRN PRN Reason: Additional IVPB Infusion Dextrose (Dextrose 10%-Water) 250 mls @ 999 mls/hr IV .Q16M PRN; Protocol PRN Reason: HYPOGLYCEMIA Ceftriaxone Sodium (Rocephin) 1 gm in 50 mls @ 100 mls/hr IV Q24 [facility] Last Infusion: 10/13/19 21:51 Dose: Infused Documented by: Potassium Chloride/Sodium Chloride (Kcl 20meq In 0.45% Ns 1000ml) 1,000 mls @ 100 mls/hr IV .Q10H [facility] Last Infusion: 10/13/19 22:13 Dose: 100 mls/hr Documented by: Norepinephrine Bitartrate 8 mg (/ Sodium Chloride) 250 mls @ 9.375 mls/hr CONT INF .[id number] [facility]; Protocol Insulin Glargine (Lantus (Bkc)) 35 units SC BID [facility] Last Admin: 10/13/19 17:33 Dose: 35 u Documented by: Insulin Human Lispro (Humalog Kwikpen (Bkc)) 0 unit SC Q4 [facility]; Protocol Last Admin: 10/13/19 21:55 Dose: 4 u Documented by: Lactulose (Chronulac, Cephulac) 30 gm PO DAILY [facility] Magnesium Hydroxide (Milk Of Magnesia) 30 ml PO DAILY [facility] Last Admin: 10/13/19 12:40 Dose: Not Given Documented by: Metoprolol Tartrate (Lopressor (Beta Maria Antonia)) 25 mg PO BID [facility] Last Admin: 10/13/19 21:28 Dose: Not Given Documented by: Metoprolol Tartrate (Lopressor (Beta Maria Antonia)) 5 mg IV Q8H PRN PRN PRN Reason: for HR>110, Hold for SBP<110 Ondansetron HCl (Zofran) 4 mg IV Q8H PRN PRN PRN Reason: NAUSEA/VOMITING Last Admin: 10/13/19 04:11 Dose: 4 mg Documented by: Senna/Docusate Sodium (Senokot-S, Krista-Colace) 2 tablet PO BID PRN PRN PRN Reason: Constipation Sodium Chloride () 10 - 40 ml IV UD PRN PRN Reason: SALINE FLUSH Last Admin: 10/13/19 14:07 Dose: 20 ml Documented by: Assessment/Plan All Active Problems (Last Reviewed 07/20/19 @ 14:40 by Reyna Hernandez) Ventricular ectopy (Acute) Electrolyte abnormality (Acute) GI bleed (Acute) Abdominal pain (Acute) Dehydration (Acute) Atrial fibrillation with RVR (Acute) 74-year-old male with upper GI bleed 1. Patient was placed in the ICU for A. fib RVR. At that time he was com plaining of abdominal pain which his described as diffuse. Patient had a KUB which showed constipation. Patient was given enemas and started having bowel movements and has abdominal pain improved. The patient was also noted to have a very high glucose and was given an insulin drip and IV fluids. The patient's white count was elevated as was his hemoglobin and creatinine this afternoon. After fluids his white count is normal and his hemoglobin is 14 from 19. This evening the patient noted pain and then he had coffee-ground emesis. Subsequently he was intubated. His blood pressure did drop after intubation. The patient had a OG placed and this revealed coffee-ground emesis. The patient also possibly aspirated as there was blood in his mouth and larynx during intubation. 2. The patient's is present and I discussed his status with her. The patient is currently intubated having coffee-ground material from his NG tube. I discussed EGD with the patient in detail. The patient's would like to proceed. I discussed that he is fully anticoagulated with Lovenox and there is increased risk of bleeding. I also discussed that I may not be able to stop the source of bleeding and he may require transfer. The patient's understands and wants to proceed. I also discussed the risks of perforation of the GI tract and worsening of the bleeding. Endoscopy team is being called in to do a bedside EGD. 3. The hospitalist is at the bedside and requests central line placement. I discussed this with the patient's in detail. I discussed the risks including bleeding, pneumothorax, line infection. The patient's consented for central line placement as well. 4. Once the patient is stable enough to go to CAT scan I will order a CT of the abdomen and pelvis. Paul Coyle MD Pager: [facility] [address] [place] [address] [address] [place] [address] Office:
[2019-10-13] MEDS: Midazolam 2 MG/2 ML Syringe IV (23:38)
[2019-10-13 23:46] LABS: Base Excess -9 mmol/L (-2 to +2); Bicarbonate 19.8 mmol/L (22-26); Blood Gas Specimen Type ART; FI02 100; Mode A-C; O2 Delivery Device Vent; PEEP 8; PO2 51 mmHG (75-100); RR 14; SITE R Radial; SO2 75 % (95-99); Time Given 2333; Total Carbon Dioxide 21 mmol/L; Vt 500; pCO2 55.2 mmHg (35-45); pH 7.16 (7.35-7.45)
[2019-10-14] VITALS (8 sets, daily range): BP systolic 54–91; BP diastolic 32–57; PULSE 76–80; RESP 23–25; O2SAT 73–89
--- NOTE | 2019-10-14 00:02 | EKG12_ITS ---
Test Reason : Blood Pressure : / mmHG Vent. Rate : 076 BPM Atrial Rate : 076 BPM P-R Int : 140 ms QRS Dur : 094 ms QT Int : 410 ms P-R-T Axes : 035 -07 113 degrees QTc Int : 461 ms Normal sinus rhythm Septal infarct , age undetermined Inferior infarct , age undetermined Abnormal ECG When compared with ECG of 13-OCT-2019 00:59, MANUAL COMPARISON REQUIRED, DATA IS UNCONFIRMED Confirmed by SALTY MAZARIEGOS, GURWINDER ([id number]), general expeditor RICKY MACIAS ([id number]) on 10/16/2019 11:02:06 AM Referred By: Alan Mata Confirmed By:GURWINDER POND MD
--- NOTE | 2019-10-14 00:05 | RAD_ITS ---
STUDY: X-RAY CHEST REASON FOR EXAM: Male, 74 years old. CENTRAL LINE PLACEMENT TECHNIQUE: Single AP portable view of the chest. COMPARISON: 10/13/2019. FINDINGS: The endotracheal tube has the tip approximately 4.5 cm above katarzyna. There is a left-sided IJ central line with the tip in the left brachiocephalic vein just proximal to the junction with the superior vena cava. There is a nasogastric tube with the tip below the diaphragm but not included in the [id number]. The lungs are slightly underexpanded with bilateral mid-lower lung field patchy infiltrate suggestive of pneumonia. There is no demonstrated pleural abnormality. Midline sternotomy wires noted otherwise normal cardiac size. Normal mediastinum and parminder. Normal visualized pulmonary arteries. There is atherosclerotic calcification of the aortic arch with tortuosity. There are diffuse degenerative changes of the visualized thoracic spine. There is degenerative osteoarthritis of the bilateral shoulders. There is no demonstrated abnormality of the visualized soft tissue structures of the upper abdomen. RAD/CXR for Line Placement IMPRESSION: Lines and tubes as described above. Bilateral lower lobe airspace disease compatible with pneumonia. Electronically Signed: Laura San MD at 1:10 EST , Service support ,
[2019-10-14] MEDS: Propofol 10MG/Ml 1,000 MG/100 ML Bottle 6 MG CONT INF (00:16)
[2019-10-14] MEDS: fentaNYL drip 100 ML 5 MCG IV (00:22)
--- NOTE | 2019-10-14 00:37 | NURSING ---
pt having EGD by Dr. Coyle, pt became more hypotensive, more bradycardic and did not have pulse. IMELDA HERNANDEZ was called. See CODE BLUE documentation for further information.
--- NOTE | 2019-10-14 00:55 | NURSING ---
0055 - pt , pronounced by Dr. Reinoso. See packet in chart for post mortem information.
--- NOTE | 2019-10-14 00:59 | CPS ---
Spoke with Dr. Blevins via phone shortly after this 4883 ventilator check. Verbal order from Dr. Blevins to leave patient on current AC/VC settings to give time for sedation to be initiated and to kick in. If needed, I was given an order to switch to APRV after giving time for sedation to kick in and to call Dr Blevins back. Due to rapid deterioration, pending APRV order never initiated.
--- NOTE | 2019-10-14 01:05 | PCM.OPRPT ---
Problem List (1) GI bleed Status: Acute Qualifiers: GI bleed type/associated pathology: gastrointestinal hemorrhage with hematemesis Qualified Code(s): K92.0 - Hematemesis Report of Operation Date of Procedure: 10/14/19 Pre-Operative Diagnosis: Upper GI bleed Post-Operative Diagnosis: Large duodenal ulcer Surgery/Procedure Performed:: EGD Description of Procedure: The patient was saturating at about 75% on intubated 100% oxygen before the procedure. He was also on high dose of Levophed. The scope was advanced through the esophagus which contained old coffee-ground blood. The stomach was reached and the body of the stomach did not contain any bright red blood. There was some old coffee-ground material. The prepyloric area appeared normal. Once the duodenum was entered there was clot in this area. The patient appeared to have a large duodenal ulcer. There is no bright red active bleeding from this ulcer. There was a tight adherent clot. After advancing the scope past this area there was old blood in the distal duodenum with no signs of active bleeding. During the EGD the patient became bradycardic and a CODE BLUE was called and the scope was aborted.
--- NOTE | 2019-10-14 01:07 | PCM.PN.BLA ---
Progress Note The patient was on pressor support and having difficulty maintaining oxygenation before the scope. Once the scope was advanced the patient appeared to have a large duodenal ulcer which was not actively bleeding but there was old clot in the stomach and duodenum. During the procedure before I was able to inject epinephrine the patient became bradycardic and lost his pulse. CODE BLUE was called and the scope was terminated. Despite resuscitation efforts including several rounds of CPR and vasoactive drugs, the patient . Dr. Reinoso and myself discussed with the patient's family. Paul Coyle MD Pager: [facility] [address] [place] [address], [address] [place] [address] Office: STROKE Vital Signs/Narrative: Vital Signs Pulse Resp BP Pulse Ox 10/13/19 23:45 71 20 H 65 10/13/19 23:35 56/44 L 10/13/19 23:04 75 21 H 76
--- NOTE | 2019-10-14 02:01 | EXP.PCM_ITS ---
Preliminary Cause of Pulseless electrical activity secondary to combined respiratory failure Date of Admission: 10/13/19 Date of : 10/14/19 - Principle Diagnosis #1 paroxysmal atrial fibrillation with RVR converted to sinus rhythm #2 acute combined respiratory failure secondary to sudden hematemesis with resulting acute aspiration #3 sudden hematemesis secondary to acute upper GI bleed from duodenal ulcer #4 diabetic ketoacidosis #5 hypokalemia #6 uncontrolled type 2 diabetes #7 acute cystitis #8 chronic polycythemia-etiology unclear #9 dehydration #10 coronary artery disease #11 constipation #12 hemorrhagic shock secondary to acute blood loss from duodenal ulcer Problem List: Active and Suspected Problems (Last Reviewed 07/20/19 @ 14:40 by Reyna Hernandez) Ventricular ectopy (Acute) Electrolyte abnormality (Acute) GI bleed (Acute) Abdominal pain (Acute) Dehydration (Acute) Atrial fibrillation with RVR (Acute) Hospital Course This 74-year-old white male was seen in the emergency room at [facility] with a chief complaint of abdominal pain, patient mentioned that he had not had a bowel movement in 8 days. In the emergency department, patient was noted to be in atrial fibrillation with rapid ventricular response-his heart rate was in the 160s. Lab was remarkable for mild leukocytosis, hemoglobin of 18.4, potassium of 3.2, BUN of 27, blood glucose of 381, and patient's anion gap was normal. Patient had an x-ray of his abdomen which showed no signs of bowel obstruction or free air. Patient was given IV Cardizem in the emergency room which slowed his heart rate, was admitted to PCU, placed on anticoagulation, and seen in consultation by cardiology. Repeat labs later that day showed the patient to have significant elevated blood sugars with an anion gap and he was felt to have DKA, patient was transferred to ICU and placed on an insulin drip. Patient was also noted to have a urinary tract infection and he was started on Rocephin. Patient converted to normal sinus rhythm following transition to the ICU, he had some hypotension and was given vigorous fluid administration. On the evening of 10/13/2019, I received a call to evaluate the patient approxim ately 9 PM-he was complaining of shortness of breath, at that time a chest x-ray was obtained-by my read out, it did not show signs of pulmonary edema and on my examination of the patient, he had expiratory rhonchi bilaterally. Patient's repeat CBC showed a normal white blood cell count and a hemoglobin of 14.6. I ordered DuoNeb aerosols on the patient as he had had a long history of smoking-patient told me he stopped approximately 10 years ago. Approximately 1 hour after I examined the patient, I was called by his ICU nurse and informed that the patient had had a large emesis of bright red blood and old blood and he was having more respiratory distress. I examined the patient in the ICU and he appeared to be short of breath and had vomited up a large amount of dark blood and some bright red blood. Before I went to the ICU to evaluate the patient, I contacted general surgery and asked him to come in to see the patient-I suspected the patient might need an emergent EGD. Patient's was called and she came to the hospital and discussion was carried out with her and she requested aggressive resuscitation efforts. General surgery arrived shortly after my arrival in the ICU, it was obvious the patient needed intubated due to increasing respiratory embarrassment. Patient was intubated by respiratory therapy and the patient underwent placement of a central line by general surgery but despite resuscitation efforts, the patient remained hypotensive and repeat blood gases showed the patient to be hypoxic and hypercapnic on 100% oxygen and a PEEP of 8. I contacted critical care by phone and discussed the case with Dr. Blevins, he made suggestions concerning patient care. Patient was placed on increasing doses of Levophed due to hypotension. Decision was made to have the patient undergo an EGD to ascertain if he was actively bleeding -with his 's permission, while this EGD was being performed, the patient had an episode of bradycardia and went into PEA at 12:37 AM. Resuscitation attempts were carried out including multiple administrations of epinephrine and bicarbonate administration as well as continuous chest compressions. Patient remained in PEA and did not respond to any aggressive intervention. Patient was pronounced at 12:55 AM on 10/14/2019. The patient's family members-his , his daughter, and his granddaughter were present, did not request an autopsy. I discussed his care with them extensively. Code Visit Inpatient E&M: [id number] [facility]
--- NOTE | 2019-10-14 03:58 | CPS ---
Critical blood gas results given to Dr. Reinoso.
[2019-10-15 13:21] LABS: Pathologist Review Reviewed
== END 2019-10-14 02:30 | DRG 377 ==
LOC: ED 00:32 → ICU 03:21
PROVIDERS: Internal Medicine; Surgery; Admitting Provider Hospitalist; Emergency Provider Emergency Medicine; PCP Physician Assistant; Referring Provider Physician Assistant; Visit Provider Family Medicine
PROC: 0DJ08ZZ Inspection of Upper Intestinal Tract, Via Natural or Artificial Opening Endoscopic (ICD-10-PCS; CPT 43235; principal; 2019-10-13 23:45)
DX: K26.4 Chronic or unspecified duodenal ulcer with hemorrhage (principal); J96.02 Acute respiratory failure with hypercapnia; E11.10 Type 2 diabetes mellitus with ketoacidosis without coma; J96.01 Acute respiratory failure with hypoxia; D62 Acute posthemorrhagic anemia; I25.110 Atherosclerotic heart disease of native coronary artery with unstable angina pectoris; N39.0 Urinary tract infection, site not specified; N17.9 Acute kidney failure, unspecified; I48.0 Paroxysmal atrial fibrillation; R57.8 Other shock; I49.3 Ventricular premature depolarization; E86.0 Dehydration; E87.6 Hypokalemia; D75.1 Secondary polycythemia; E78.5 Hyperlipidemia, unspecified; K59.00 Constipation, unspecified; E66.9 Obesity, unspecified; I10 Essential (primary) hypertension; I25.2 Old myocardial infarction; Z68.30 Body mass index [BMI] 30.0-30.9, adult; Z95.1 Presence of aortocoronary bypass graft; Z87.19 Personal history of other diseases of the digestive system; Z79.82 Long term (current) use of aspirin; Z79.84 Long term (current) use of oral hypoglycemic drugs; Z79.899 Other long term (current) drug therapy; Z87.891 Personal history of nicotine dependence; Z90.49 Acquired absence of other specified parts of digestive tract
CPT/HCPCS: 31500; 31720; 36600; 71045; 74018; 74022; 80048; 80053; 80061; 81001; 82009; 82803; 82962; 83036; 83690; 83735; 84100; 84443; 84484; 85025; 86850; 86900; 86901; 86920; 87070; 87077; 87086; 87088; 87205; 93005; 93306; 94002; 99251; 99284; J7030; J7040; J7050; Q9957; A4216; C1751; C8929; G0463; J2405; J3490